=== PATIENT | female | born 1955 | race Caucasian/White ===

== ENCOUNTER 2020-09-14 13:28 | Inpatient (IN) | payer MEDICARE, MEDICAID, SELFPAY ==
[2020-09-14] VITALS (8 sets, daily range): BP systolic 117–135; BP diastolic 60–103; PULSE 96–107; RESP 13–20; TEMP 37.4–38.1; O2SAT 93–99; BMI 58.2
--- NOTE | ~2020-09-14 | CT_ITS ---
EXAMINATION: CTA chest PE protocol DATE: 09/14/2020 15:04 INDICATION: Dyspnea. TECHNIQUE: Computed tomography angiography (CTA) of the chest was performed with 100 mL Omnipaque-350 intravenous contrast timed to evaluate the pulmonary arteries. Coronal maximum intensity projection 3D-reconstructions were created by the technologist. Automated exposure control and iterative reconst ruction technique were employed. The dose-length product was 1138.36 mGy-cm. COMPARISON: Chest 2 views 09/14/2020 FINDINGS: There is a pneumatocele in right upper lobe. There are mild peripheral patchy groundglass o pacities in the upper and lower lobes with a peripheral and lower lung predominance. There is a small right posterior diaphragmatic hernia containing fat. No pleural effusion. There is a 4.2 cm nodule i n right thyroid lobe. The heart size is normal. No pericardial effusion. There is no pulmonary embolu s. The liver demonstrates surface nodularity, consistent with cirrhosis. There is a 2.3 cm mass in ri ght adrenal gland measuring soft tissue attenuation. There is mild thoracic spondylosis. IMPRESSION: 1. No pulmonary embolus. 2. Mild multifocal lung disease suspicious for atypical pneumonia such as COVID-19 pneumonia. Mild pu lmonary edema is less likely. 3. Cirrhosis of the liver. 4. 2.3 cm right adrenal mass. In the absence of known malignancy, this finding is likely an adenoma. 5. Right thyroid nodule. Thyroid ultrasound is recommended for risk stratification. Reviewed, dictated and finalized at location A. IMPRESSION: 1. No pulmonary embolus. 2. Mild multifocal lung disease suspicious for atypical pneumonia such as COVID -19 pneumonia. Mild pulmonary edema is less likely. 3. Cirrhosis of the liver. 4. 2.3 cm right adrenal mass. In the absence of known malignancy, this finding is likely an adenoma. 5. Right thyroid nodule. Thyroid ultrasound is recommended for risk stratificat ion.
--- NOTE | ~2020-09-14 | XR_ITS ---
EXAMINATION: XR chest 2V DATE: 09/14/2020 13:51 INDICATION: Shortness of breath TECHNIQUE: AP and lateral views of the chest are obtained. COMPARISON: 06/20/2008 FINDINGS: The lungs are free of acute opacities. There is no pleural effusion or pneumothorax. The ca rdiomediastinal silhouette is normal. There is mild thoracic spondylosis. IMPRESSION: 1. No acute cardiopulmonary abnormality. Reviewed, dictated and finalized at location A.
--- NOTE | 2020-09-14 13:35 | ECG_ITS ---
Measurements Intervals [place] Rate: 103 P: 63 SD: 122 QRS: -43 QRSD: 133 T: 15 QT: 356 QTc: 467 Interpretive Statements SINUS TACHYCARDIA LEFT AXIS DEVIATION RIGHT BUNDLE BRANCH BLOCK BASELINE ARTIFACT- I, III, AVR, AVL, AVF, V1-V6 ABNORMAL ECG Electronically Signed On 09-14-2020 13:54:22 CDT by Rashard Wan D.O.
--- NOTE | 2020-09-14 14:02 | ED.SOB ---
HPI - SOB/Dyspnea General Chief Complaint: Shortness of Breath/Dyspnea Stated Complaint: WEAKNESS Time Seen by Provider: 09/14/20 13:37 Source: RN notes reviewed History of Present Illness HPI Narrative: Patient presents emergency department from home via EMS for shortness of breath. Patient states she has not been feeling well for the past 3 days states she has had a cough this been nonproductive as well as nausea and hoarse voice she states that she gone to see Dr. Mckoy in the office today and one when she is like after a car she became severely short of breath. Patient denies any fevers or chills abdominal pain or any other symptoms states she has been feeling generally weak. Patient states she has not had a COVID-19 vaccines patient states her shortness of breath she does have a tightness in the midsternal chest Related Data Home Medications Medication Instructions Recorded Confirmed aspirin 81 mg tablet,delayed 81 mg PO DAILY 01/29/19 09/14/20 release Allergies Allergy/AdvReac Type Severity Reaction Status Date / Time exenatide Allergy Unknown Unknown Verified 09/14/20 13:33 saxagliptin Allergy Unknown Rash Verified 09/14/20 13:33 Review of Systems Review of Systems: Gen.: Denies fevers or chills Eyes: Denies eye pain or visual change ENT: Denies congestion Respiratory: See HPI CV: Reports chest pain palpitations GI: Denies abdominal pain , emesis or diarrhea reports nausea denies burning, urgency, frequency or hematuria Musculoskeletal: Denies back pain or muscle pain Neuro: Reports weakness Skin: Denies rash Except as documented, all other systems reviewed and negative [facility] Past Medical History Medical History Bilateral primary osteoarthritis of knee BMI 50.0-59.9, adult BMI 60.0-69.9, adult Chronic kidney disease, unspecified Chronic sinusitis, unspecified Depression Diabetes mellitus due to underlying condition, uncontrolled, without long-term current use of insulin Dyspnea Environmental allergies GERD (gastroesophageal reflux disease) Hyperlipidemia Hypertension Hypothyroidism, unspecified Leg weakness, bilateral Lower extremity edema Mixed hyperlipidemia Morbid (severe) obesity due to excess calories Nasal congestion ERAN on CPAP Tachycardia Type 2 diabetes mellitus without complications Surgical History Surgical History History of carpal tunnel release History of prior ablation treatment Family History Family History Mother Family history of alcoholism Grandparent Family history of malignant neoplasm of breast Family history of malignant neoplasm of breast in first degree relative Father Family history of coronary artery disease Sibling Diabetes mellitus Hypertension Social History Social History Smoking end date: 02/10/97 Alcohol intake: never Exam Narrative: APPEARANCE: No acute distress, nontoxic, resting in bed EYES: EOMI HEENT: Normocephalic, atraumatic, OMM, hoarse voice RESPIRATORY: No respiratory distress Clear to auscultation bilaterally with no rhonchi wheezing or rales. CARDIOVASCULAR: Regular rate and rhythm without murmurs rubs or gallops. ABDOMINAL: Obese soft, nontender, nondistended, no rebound or guarding MUSCULOSKELETAl: Moves all extremities. No clubbing, cyanosis or edema. NEURO: Awake and alert. Following commands, speech normal, no focal deficits SKIN:: Warm, dry. No rashes lesions or abrasions PSYCHIATRIC: Normal affect/mood, Course Course Emergency Course: Reviewed records including recent visit to Dr. Mckoy today patient was noted to be tachycardic in the 140s 150s with ambulating Discussed with CAMILO Quarles for Dr Burns presentation work-up agrees with admission at this time request patient star
[2020-09-14 14:12] LABS: Basophils Percent Auto 0.4 % (0.2-1.2); Eosinophils Absolute Auto 0.1 K/mm3 (0-0.3); Eosinophils Percent Auto 2.6 % (0-4.4); Hematocrit 37.7 % (37.0-47.0); Hemoglobin 11.2 g/dL (12.0-15.0); Immature Granulocyte Absolute 0.02 K/mm3 (0.00-0.031); Immature Granulocyte Percent A 0.4 % (0-0.5); Lymphocytes Absolute Auto 0.89 K/mm3 (0.9-3.2); Lymphocytes Percent Auto 19.1 % (18.3-44.2); Mean Corpuscular HGB Conc 29.7 g/dl (32-36); Mean Corpuscular Hemoglobin 21.1 pg (26-34); Mean Platelet Volume 10.5 fl (7.4-10.4); Monocytes Absolute Auto 0.4 K/mm3 (0.1-0.6); Monocytes Percent Auto 8.2 % (2.6-8.5); Neutrophils Absolute Auto 3.2 K/mm3 (1.3-6.7); Neutrophils Percent Auto 69.3 % (45.5-73.1); Platelet Count Result 233 k/mm3 (150-375); Red Blood Count 5.31 M/mm3 (4.2-5.4); Red Cell Distribution Width 19.3 % (11.5-14.5); White Blood Count 4.7 K/mm3 (4.5-10.0)
[2020-09-14 14:21] LABS: INR 0.9; Prothrombin Time 11.6 Seconds (11.1-14.7)
[2020-09-14 14:22] LABS: Alanine Aminotransferase 43 U/L (4-35); Albumin Level 4.2 g/dL (3.5-5.1); Alkaline Phosphatase 146 U/L (38-126); Anion Gap 13 mmol/L (8-16); Aspartate Amino Transferase 51 U/L (14-36); Bilirubin,Total 0.2 mg/dL (0.2-1.3); Blood Urea Nitrogen 14 mg/dL (7-17); Calcium 8.8 mg/dL (8.4-10.2); Carbon Dioxide 25 mmol/L (22-30); Chloride 96 mmol/L (98-107); Estimated CRCL calculation 63 ml/min; Estimated Glomerular Filt Rate 45; Glucose 200 mg/dL (65-110); Lipase 156 U/L (23-300); Potassium 3.5 mmol/L (3.4-5.0); Sodium 134 mmol/L (137-145)
[2020-09-14 14:24] LABS: D Dimer 2.23 ug/mL (<0.48)
[2020-09-14 14:27] LABS: Add Urine Microscopic? YES; Appearance Urine Clear (Clear); Bacteria Urine Trace /hpf; Bilirubin Urine Negative (Negative); Blood Urine Negative (Negative); Color Urine Yellow (Yellow); Glucose Urine UA 3+ mg/dL (Negative); Ketones Urine Negative (Negative); Leukocyte Esterase Ur Negative LEU/UL (Negative); Nitrate Urine Negative (Negative); Protein Urine Negative (Negative); RBC Urine 0-2 /hpf (0-2); Specific Grav Ur 1.025 (1.001-1.035); Squamous Epithelial Cell Urine Occasional /hpf (Few); Urobilinogen Urine Negative mg/dL (<2.0); WBC Urine 0-3 /hpf
[2020-09-14 14:33] LABS: Troponin I < 0.012 ng/mL (0.000-0.034)
[2020-09-14 14:33] LABS: Hypochromasia 1+ (NORMAL); Platelet Estimate Adequate (Adequate)
--- NOTE | 2020-09-14 16:09 | PC.NURSE ---
Patient's son called and patient gave verbal consent to give him medical information over the phone.
[2020-09-14 17:14] LABS: Lactic Acid Reflex 1.9 mmol/L (0.7-2.1)
--- NOTE | 2020-09-14 18:38 | ADMGEN ---
This patient, Jaida Aguilera, was admitted to [facility] Surg Room 327-01. Patient/family oriented to hospital policies and general routines including ID bracelet, bed and alarms, visiting hours, pain management, procedures, bathroom and other care routines, personal items, smoking policy, room service/diet, and visiting hours. Information on how to activate the Rapid Response Team has been discussed. Patient/Family are encouraged to report perceived risks to care and to ask questions if they do not understand what they are told or what they should do.
[2020-09-14 20:19] LABS: Troponin I < 0.012 ng/mL (0.000-0.034)
[2020-09-14] MEDS: ACETAMINOPHEN 325 MG TABLET 650 MG PO (20:24)
--- NOTE | 2020-09-14 22:00 | PM.IMHP ---
H&P: HPI History of Present Illness Date/Time: 09/14/20 22:00 Chief Complaint: SHORTNESS OF BREATH Narrative: THIS IS A 65-YEAR-OLD FEMALE WITH PAST MEDICAL HISTORY SIGNIFICANT FOR MORBID OBESITY, OBSTRUCTIVE SLEEP APNEA ON CPAP, DEGENERATIVE JOINT DISEASE, CONGESTIVE HEART FAILURE, TYPE 2 DIABETES MELLITUS, HYPERTENSION, HYPOTHYROIDISM. PATIENT PRESENTED TODAY TO THE EMERGENCY ROOM DUE TO GENERAL MALAISE BODY ACHES AND PAINS CHILLS FEVERS COUGH NONPRODUCTIVE SHORTNESS OF BREATH, POOR APPETITE. SHE DENIES ANY LOSS OF SENSE OF TASTE OR SMELL NO NAUSEA NO VOMITING NO DIARRHEA NO ABDOMINAL PAIN NO PND NO ORTHOPNEA. PRELIMINARY WORKUP WAS SIGNIFICANT FOR CTA NEGATIVE FOR PULMONARY EMBOLISM AND PATCHY PULMONARY INFILTRATES. Review of Systems Review of Systems: BODY ACHES AND PAINS GENERALIZED MALAISE POOR APPETITE FEVERS CHILLS COUGH NONPRODUCTIVE Constitutional: Constitutional: Reports chills, Reports fatigue, Reports fever(s), Reports lethargy, Reports malaise and Reports poor appetite Eyes: Eyes: Denies change in vision ENT: Denies dysphagia, Denies nasal congestion, Denies nasal discharge, Denies nasal obstruction and Denies odynophagia Cardiovascular: Cardiovascular: Denies chest pain, Denies irregular heart rhythm, Denies radiating jaw, neck or arm pain, Denies palpitations and Denies dyspnea on exertion Respiratory: Respiratory: Reports cough and Reports dyspnea Gastrointestinal: Gastrointestinal: Denies dyspepsia, Denies diarrhea, Denies nausea and Denies vomiting Genitourinary: Genitourinary: Reports no additional female genitourinary complaints Musculoskeletal: Musculoskeletal: Reports arthralgias ( BILATERAL KNEES) Integumentary/Breasts: Skin/Breast: Reports system reviewed and no additional complaints, except as docu Neurologic: Reports system reviewed and no additional complaints, except as documented Psychiatric: Psychiatric: Reports no additional psychiatric complaints Endocrine: Endocrine: Reports no additional endocrine complaints Hematologic/Lymphatic: Hematologic/Lymphatic: Reports no additional hematologic/lymphatic complaints Allergic/Immunologic: Allergic/Immunologic: Reports no additional allergic/immunologic complaints [facility] Past Medical History Medical History Bilateral primary osteoarthritis of knee BMI 50.0-59.9, adult BMI 60.0-69.9, adult Chronic kidney disease, unspecified Chronic sinusitis, unspecified Depression Diabetes mellitus due to underlying condition, uncontrolled, without long-term current use of insulin Dyspnea Environmental allergies GERD (gastroesophageal reflux disease) Hyperlipidemia Hypertension Hypothyroidism, unspecified Leg weakness, bilateral Lower extremity edema Mixed hyperlipidemia Morbid (severe) obesity due to excess calories Nasal congestion ERAN on CPAP Tachycardia Type 2 diabetes mellitus without complications Surgical History Surgical History History of carpal tunnel release History of prior ablation treatment Family History Family History Mother Family history of alcoholism Grandparent Family history of malignant neoplasm of breast Family history of malignant neoplasm of breast in first degree relative Father Family history of coronary artery disease Sibling Diabetes mellitus Hypertension Social History Social History Smoking status: Never smoker Second hand tobacco smoke exposure: No Smoking end date: 02/10/97 Alcohol intake: never Substance use: never Gender identity (if verbalized by the patient): Female Sexual Orientation (if Verbalized by the Patient): Straight or Heterosexual Spiritual care concerns: No Meds Home Medications and Allergies Home Medications Medication Instructi
[2020-09-14 22:38] LABS: Troponin I < 0.012 ng/mL (0.000-0.034)
[2020-09-15] VITALS (10 sets, daily range): BP systolic 118–151; BP diastolic 52–72; PULSE 78–95; RESP 18–22; TEMP 36.4–37.3; O2SAT 93–97
[2020-09-15] MEDS: ALBUTEROL SULFATE (*SP) AEROSOL 1 PUFF 2 PUFF INHALATION ×2 (04:23→04:24)
[2020-09-15] MEDS: PRIMIDONE 50 MG TABLET BY MOUTH ×2 (06:00→20:44)
[2020-09-15] MEDS: LEVOTHYROXINE SODIUM 50 MCG TABLET PO (06:00)
[2020-09-15 06:45] LABS: Basophils Percent Auto 0.3 % (0.2-1.2); Eosinophils Absolute Auto 0.1 K/mm3 (0-0.3); Eosinophils Percent Auto 2.6 % (0-4.4); Hematocrit 35.1 % (37.0-47.0); Hemoglobin 10.3 g/dL (12.0-15.0); Immature Granulocyte Absolute 0.02 K/mm3 (0.00-0.031); Immature Granulocyte Percent A 0.6 % (0-0.5); Lymphocytes Absolute Auto 1.14 K/mm3 (0.9-3.2); Lymphocytes Percent Auto 32.9 % (18.3-44.2); Mean Corpuscular HGB Conc 29.3 g/dl (32-36); Mean Corpuscular Hemoglobin 20.6 pg (26-34); Mean Corpuscular Volume 70.3 fl (80-100); Mean Platelet Volume 10.4 fl (7.4-10.4); Monocytes Absolute Auto 0.6 K/mm3 (0.1-0.6); Monocytes Percent Auto 15.9 % (2.6-8.5); Neutrophils Absolute Auto 1.7 K/mm3 (1.3-6.7); Neutrophils Percent Auto 47.7 % (45.5-73.1); Platelet Count Result 229 k/mm3 (150-375); Red Blood Count 4.99 M/mm3 (4.2-5.4); Red Cell Distribution Width 18.6 % (11.5-14.5); White Blood Count 3.5 K/mm3 (4.5-10.0)
[2020-09-15 07:06] LABS: Anion Gap 11 mmol/L (8-16); Blood Urea Nitrogen 20 mg/dL (7-17); Calcium 8.8 mg/dL (8.4-10.2); Carbon Dioxide 26 mmol/L (22-30); Chloride 101 mmol/L (98-107); Estimated CRCL calculation 75 ml/min; Estimated Glomerular Filt Rate 56; Glucose 148 mg/dL (65-110); Potassium 3.5 mmol/L (3.4-5.0); Sodium 138 mmol/L (137-145)
[2020-09-15 07:10] LABS: Platelet Estimate Adequate (Adequate)
[2020-09-15 07:11] LABS: Anisocytosis 1+ (NORMAL); Hypochromasia 1+ (NORMAL)
[2020-09-15 08:03] LABS: Glucose Point of Care 168 mg/dl (65-105)
[2020-09-15] MEDS: lisinopriL 20 MG TABLET PO (08:38)
[2020-09-15] MEDS: buPROPion HCL XL (24 HR) 150 MG TABCR PO (08:38)
[2020-09-15] MEDS: ATORVASTATIN 10 MG TABLET PO (08:39)
[2020-09-15] MEDS: PARoxetine 20 MG TABLET 40 MG PO (08:39)
[2020-09-15] MEDS: PANTOPRAZOLE 40 MG TABLET PO (08:39)
[2020-09-15] MEDS: hydroCHLOROthiazide 12.5 MG CAPSULE PO (08:39)
[2020-09-15] MEDS: ASPIRIN 81 MG ENTERIC TABLET PO (08:39)
[2020-09-15] MEDS: ENOXAPARIN 40 MG/0.4 ML SYRINGE SUB-Q ×2 (08:40→20:45)
[2020-09-15] MEDS: TOLNAFTATE 1% POWDER 45 GM BTL 1 APPLIC TOPICAL ×2 (08:40→20:45)
[2020-09-15] MEDS: HYDROcodone/acetaminophen (*CRX) 5-325 MG TABLET 1 TAB PO ×2 (08:44→18:12)
[2020-09-15] MEDS: ALBUTEROL SULFATE (*SP) INHALER 2 PUFF INHALATION ×3 (09:46→20:44)
[2020-09-15 12:15] LABS: Glucose Point of Care 260 mg/dl (65-105)
[2020-09-15] MEDS: INSULIN ASPART (*BKC) 100 UNITS/ML 8 UNITS SUB-Q (12:17)
--- NOTE | 2020-09-15 16:09 | PM.IMPN ---
Progress Note: A&P Assessment and Plan (1) Pneumonia: Code(s): J18.9 - Pneumonia, unspecified organism Status: Acute Assessment and Plan: STARTED ON ROCEPHIN AND ZITHROMAX AWAIT CULTURES 09/15 patient is suspected having COVID-19 patient is tested an isolated, patient had a CTA of the chest there was no pulmonary emboli however CT scan is suspicious COVID-19 pneumonia, there is also concern the patient may have community-acquired pneumonia being treated with Rocephin azithromycin, the CTA of the chest also right thyroid nodule will do ultrasound to further evaluate,the patient is on room air, denies any cough shortness of breath fever or chills, wants to go home, will continue to monitor further recommendation to follow. (2) Suspected 2019-nCoV infection: Code(s): Z20.822 - Contact with and (suspected) exposure to COVID-19 Status: Acute Assessment and Plan: AWAITING SEROLOGY CONTINUE ISOLATION (3) Diabetes mellitus due to underlying condition, uncontrolled, without long-term current use of insulin: Code(s): E08.65 - Diabetes mellitus due to underlying condition with hyperglycemia Status: Acute Assessment and Plan: ACCU-CHEKS AC AND HS CARB CONSISTENT CALORIE RESTRICTED DIET INSULIN SLIDING SCALE NEEDED (4) Class 3 severe obesity due to excess calories without serious comorbidity in adult: Code(s): E66.01 - Morbid (severe) obesity due to excess calories Status: Acute Assessment and Plan: LIFESTYLE AND DIET MODIFICATION (5) ERAN on CPAP: Code(s): G47.33 - Obstructive sleep apnea (adult) (pediatric); Z99.89 - Dependence on other enabling machines and devices Status: Acute Assessment and Plan: CONTINUE CPAP (6) Hypertension: Code(s): I10 - Essential (primary) hypertension Status: Acute Assessment and Plan: CONTINUE HOME MEDS (7) Bilateral primary osteoarthritis of knee: Code(s): M17.0 - Bilateral primary osteoarthritis of knee Status: Acute Assessment and Plan: TYLENOL NEEDED Subjective Date/time seen: 09/15/20 16:09 Chief Complaint: SHORTNESS OF BREATH Narrative: THIS IS A 65-YEAR-OLD FEMALE WITH PAST MEDICAL HISTORY SIGNIFICANT FOR MORBID OBESITY, OBSTRUCTIVE SLEEP APNEA ON CPAP, DEGENERATIVE JOINT DISEASE, CONGESTIVE HEART FAILURE, TYPE 2 DIABETES MELLITUS, HYPERTENSION, HYPOTHYROIDISM. PATIENT PRESENTED TODAY TO THE EMERGENCY ROOM DUE TO GENERAL MALAISE BODY ACHES AND PAINS CHILLS FEVERS COUGH NONPRODUCTIVE SHORTNESS OF BREATH, POOR APPETITE. SHE DENIES ANY LOSS OF SENSE OF TASTE OR SMELL NO NAUSEA NO VOMITING NO DIARRHEA NO ABDOMINAL PAIN NO PND NO ORTHOPNEA. PRELIMINARY WORKUP WAS SIGNIFICANT FOR CTA NEGATIVE FOR PULMONARY EMBOLISM AND PATCHY PULMONARY INFILTRATES. 09/15 patient is suspected having COVID-19 patient is tested an isolated, patient had a CTA of the chest there was no pulmonary emboli however CT scan is suspicious COVID-19 pneumonia, there is also concern the patient may have community-acquired pneumonia being treated with Rocephin azithromycin, the CTA of the chest also right thyroid nodule will do ultrasound to further evaluate,the patient is on room air, denies any cough shortness of breath fever or chills, wants to go home, will continue to monitor further recommendation to follow. Review of Systems Review of Systems: All systems reviewed & are unremarkable except as noted in HPI and below Exam Narrative: morbidly obese Patient is comfortable, NAD HEENT: eyes are clear and none icteric LUNGS: normal respiratory effort ABD: distended obese Lower extremities: no edema SKIN: nonjaundiced Neuro: grossly intact. Objective Data Vital Signs Vital Signs: Vital Signs - 24 hr 09/14/20 17:44 09/14/20 18:12 09/14/20 18:47 Temperature 100.6 F H Pulse Rate 105 H 100 101 H Respiratory Rate 16 13 20 Blood Pressure 135/60 124/72 133/61 Pulse Ox
[2020-09-15 17:09] LABS: Glucose Point of Care 127 mg/dl (65-105)
[2020-09-15] MEDS: ACETAMINOPHEN 325 MG TABLET 650 MG PO (20:45)
[2020-09-15 20:48] LABS: Glucose Point of Care 177 mg/dl (65-105)
[2020-09-16] VITALS (8 sets, daily range): BP systolic 126–150; BP diastolic 58–65; PULSE 78–106; RESP 16–22; TEMP 36.6–37.1; O2SAT 96–98
[2020-09-16 02:05] LABS: SARS-CoV-2 RNA PCR Positive
[2020-09-16] MEDS: ALBUTEROL SULFATE (*SP) INHALER 2 PUFF INHALATION ×4 (03:10→22:02)
[2020-09-16] MEDS: LEVOTHYROXINE SODIUM 50 MCG TABLET PO (06:09)
[2020-09-16 08:06] LABS: Glucose Point of Care 195 mg/dl (65-105)
[2020-09-16] MEDS: INSULIN ASPART (*BKC) 100 UNITS/ML 8 UNITS SUB-Q ×3 (08:22→18:21)
[2020-09-16] MEDS: PANTOPRAZOLE 40 MG TABLET PO (09:00)
[2020-09-16] MEDS: ENOXAPARIN 40 MG/0.4 ML SYRINGE SUB-Q ×2 (09:00→21:10)
[2020-09-16] MEDS: ASPIRIN 81 MG ENTERIC TABLET PO (09:00)
[2020-09-16] MEDS: buPROPion HCL XL (24 HR) 150 MG TABCR PO (09:00)
[2020-09-16] MEDS: lisinopriL 20 MG TABLET PO (09:00)
[2020-09-16] MEDS: ATORVASTATIN 10 MG TABLET PO (09:00)
[2020-09-16] MEDS: PRIMIDONE 50 MG TABLET BY MOUTH ×2 (09:00→21:10)
[2020-09-16] MEDS: hydroCHLOROthiazide 12.5 MG CAPSULE PO (09:00)
[2020-09-16] MEDS: PARoxetine 20 MG TABLET 40 MG PO (09:00)
[2020-09-16 09:01] LABS: Hematocrit 35.6 % (37.0-47.0); Hemoglobin 10.5 g/dL (12.0-15.0); Mean Corpuscular HGB Conc 29.5 g/dl (32-36); Mean Corpuscular Hemoglobin 20.9 pg (26-34); Mean Corpuscular Volume 70.8 fl (80-100); Mean Platelet Volume 10.7 fl (7.4-10.4); Platelet Count Result 218 k/mm3 (150-375); Red Blood Count 5.03 M/mm3 (4.2-5.4); Red Cell Distribution Width 18.6 % (11.5-14.5); White Blood Count 4.3 K/mm3 (4.5-10.0)
[2020-09-16] MEDS: TOLNAFTATE 1% POWDER 45 GM BTL 1 APPLIC TOPICAL ×2 (09:01→21:10)
[2020-09-16 09:05] LABS: Alanine Aminotransferase 39 U/L (4-35); Estimated CRCL calculation 75 ml/min; Estimated Glomerular Filt Rate 56
[2020-09-16 09:07] LABS: INR 0.9; Prothrombin Time 12.5 Seconds (11.1-14.7)
[2020-09-16 09:08] LABS: Alanine Aminotransferase 40 U/L (4-35); Albumin Level 4.1 g/dL (3.5-5.1); Alkaline Phosphatase 133 U/L (38-126); Anion Gap 10 mmol/L (8-16); Aspartate Amino Transferase 48 U/L (14-36); Bilirubin,Total 0.4 mg/dL (0.2-1.3); Blood Urea Nitrogen 17 mg/dL (7-17); CRP 1.4 mg/dL (<1.0); Calcium 8.7 mg/dL (8.4-10.2); Carbon Dioxide 26 mmol/L (22-30); Chloride 99 mmol/L (98-107); Estimated CRCL calculation 75 ml/min; Estimated Glomerular Filt Rate 56; Glucose 193 mg/dL (65-110); Lactate Dehydrogenase 409 U/L (313-618); Potassium 3.3 mmol/L (3.4-5.0); Sodium 135 mmol/L (137-145)
[2020-09-16 09:10] LABS: D Dimer 2.24 ug/mL (<0.48)
[2020-09-16 09:17] LABS: Troponin I < 0.012 ng/mL (0.000-0.034)
[2020-09-16] MEDS: REMDESIVIR 200 MG/NS 250 ML 200 MG/250 ML BAG 250 MG IVPB (11:42)
[2020-09-16 12:49] LABS: Glucose Point of Care 226 mg/dl (65-105)
[2020-09-16 17:28] LABS: Glucose Point of Care 219 mg/dl (65-105)
--- NOTE | 2020-09-16 17:33 | PM.IMPN ---
Progress Note: A&P Assessment and Plan (1) Pneumonia due to COVID-19 virus: Code(s): U07.1 - COVID-19; J12.82 - Pneumonia due to coronavirus disease 2019 Status: Acute Assessment and Plan: REMDESIVIR AND DEXAMETHASONE STARTED AM OF 09/16 ADD TOCILIZUMAB IF OXYGEN REQUIREMENTS AND CRP INCREASE Enoxaparin 40mg SQ bid Continue on droplet isolation (2) Diabetes mellitus due to underlying condition, uncontrolled, without long-term current use of insulin: Code(s): E08.65 - Diabetes mellitus due to underlying condition with hyperglycemia Status: Acute Assessment and Plan: SSI while on steroids (3) ERAN on CPAP: Code(s): G47.33 - Obstructive sleep apnea (adult) (pediatric); Z99.89 - Dependence on other enabling machines and devices Status: Acute Assessment and Plan: increases risk of COVID-19 cx (4) BMI 50.0-59.9, adult: Code(s): Z68.43 - Body mass index [BMI] 50.0-59.9, adult Status: Acute Assessment and Plan: increases risk of COVID-19 cx (5) Hypertension: Qualifiers: Hypertension type: unspecified Qualified Code(s): I10 - Essential (primary) hypertension Code(s): I10 - Essential (primary) hypertension Status: Acute Assessment and Plan: Stable at present but increases risk of COVID-19 cx Subjective Date/time seen: 09/16/20 17:33 Interval history: Admitted 09/14 with Pneumonia. COVID-19+. Remdesivir and Dexamethasone started 09/16 AM. 09/16 visit: Dry cough. Loss of taste. No cp or sob. No other GI sx's. Denied pain. Review of Systems Review of Systems: All systems reviewed & are unremarkable except as noted in HPI and below Exam Narrative: GEN: Morbidly obese, NAD. Patient is comfortable, NAD HEENT: eyes are clear and none icteric LUNGS: normal respiratory effort, SCATTERED WHEEZES AND RHONCHI ABD: protuberant obese nontender Lower extremities: no edema Neuro: CN symmetric to inspection Objective Data Vital Signs Vital Signs: Vital Signs - 24 hr 09/15/20 20:00 09/15/20 23:43 09/16/20 00:00 Temperature 99.0 F 99.1 F Pulse Rate 85 85 82 Respiratory Rate 20 22 H Blood Pressure 145/52 H 139/61 Pulse Oximetry 96 97 09/16/20 04:00 09/16/20 08:00 Temperature 98.5 F 98.5 F Pulse Rate 78 102 H Respiratory Rate 20 18 Blood Pressure 150/59 H 135/58 L Pulse Oximetry 98 96 Intake/Output Intake/Output: Intake & Output 09/13/20 09/14/20 09/15/20 09/16/20 23:59 23:59 23:59 23:59 Intake Total 300 2870 790 Output Total 100 1400 Balance 200 1470 790 Meds/Results Medications: Active Medications Generic Name Dose Route Start Last Admin Trade Name Freq PRN Reason Stop Dose Admin Acetaminophen 650 mg 09/14/20 19:12 09/15/20 20:45 Acetaminophen 325 Mg Tablet PO 650 mg Q6H PRN Administration Mild Pain (1-3) or Fever Hydrocodone Bitart/Acetaminophen 1 tab 09/14/20 21:52 09/15/20 18:12 Hydrocodone/Acetaminophen (*Crx) 5-325 Mg Tablet PO 1 tab Q8H PRN Administration Pain Rated 4-6 Albuterol 1 puff 09/15/20 09:27 Albuterol Sulfate (*Sp) Inhaler INHALATION Q6H PRN shortness of breath or wheezing Albuterol 2 puff 09/15/20 14:00 09/16/20 14:23 Albuterol Sulfate (*Sp) Inhaler INHALATION 2 puff Q6HRT CHERYL Administration Alprazolam 1 mg 09/14/20 21:52 Alprazolam (*Crx) 0.5 Mg Tablet PO TID PRN anxiety Aspirin 81 mg 09/15/20 09:00 09/16/20 09:00 Aspirin 81 Mg Enteric Tablet PO 81 mg DAILY CHERYL Administration Atorvastatin Calcium 10 mg 09/15/20 09:00 09/16/20 09:00 Atorvastatin 10 Mg Tablet PO 10 mg DAILY CHERYL Administration Bupropion HCl 150 mg 09/15/20 09:00 09/16/20 09:00 Bupropion Hcl Xl (24 Hr) 150 Mg Tabcr PO 150 mg QAM CHERYL Administration Dexamethasone Sodium Phosphate 6 mg 09/16/20 09:00 09/16/20 09:01 Dexamethasone Sod Phos Inj 10 Mg/Ml 1 Ml Vial IV PUSH 09/25/20 09:01 6
[2020-09-17] VITALS (11 sets, daily range): BP systolic 107–161; BP diastolic 44–74; PULSE 66–99; RESP 16–20; TEMP 36.4–37.1; O2SAT 94–98
[2020-09-17] MEDS: FLUTICASONE PROPIONATE 0.05% NA SPR 16 GM BTL (*BKC) 1 SPRAY NASAL (00:46)
[2020-09-17 02:21] LABS: Glucose Point of Care 197 mg/dl (65-105)
[2020-09-17] MEDS: ALBUTEROL SULFATE (*SP) INHALER 2 PUFF INHALATION ×4 (02:30→21:09)
[2020-09-17] MEDS: ACETAMINOPHEN 325 MG TABLET 650 MG PO (03:08)
[2020-09-17] MEDS: LEVOTHYROXINE SODIUM 50 MCG TABLET PO (06:19)
[2020-09-17 08:00] LABS: Hematocrit 32.8 % (37.0-47.0); Hemoglobin 9.7 g/dL (12.0-15.0); Mean Corpuscular HGB Conc 29.6 g/dl (32-36); Mean Corpuscular Volume 71.1 fl (80-100); Mean Platelet Volume 10.5 fl (7.4-10.4); Platelet Count Result 183 k/mm3 (150-375); Red Blood Count 4.61 M/mm3 (4.2-5.4); Red Cell Distribution Width 18.6 % (11.5-14.5); White Blood Count 3.6 K/mm3 (4.5-10.0)
[2020-09-17 08:11] LABS: Prothrombin Time 13.4 Seconds (11.1-14.7)
[2020-09-17 08:13] LABS: Alanine Aminotransferase 37 U/L (4-35); Albumin Level 3.8 g/dL (3.5-5.1); Alkaline Phosphatase 115 U/L (38-126); Anion Gap 10 mmol/L (8-16); Aspartate Amino Transferase 42 U/L (14-36); Bilirubin,Total 0.3 mg/dL (0.2-1.3); Blood Urea Nitrogen 17 mg/dL (7-17); CRP 2.1 mg/dL (<1.0); Calcium 8.5 mg/dL (8.4-10.2); Carbon Dioxide 25 mmol/L (22-30); Chloride 100 mmol/L (98-107); Estimated CRCL calculation 75 ml/min; Estimated Glomerular Filt Rate 56; Glucose 142 mg/dL (65-110); Lactate Dehydrogenase 438 U/L (313-618); Potassium 2.9 mmol/L (3.4-5.0); Sodium 135 mmol/L (137-145)
[2020-09-17 08:14] LABS: D Dimer 2.09 ug/mL (<0.48)
[2020-09-17] MEDS: INSULIN ASPART (*BKC) 100 UNITS/ML 8 UNITS SUB-Q ×3 (08:24→17:46)
[2020-09-17] MEDS: ASPIRIN 81 MG ENTERIC TABLET PO (08:25)
[2020-09-17] MEDS: ENOXAPARIN 40 MG/0.4 ML SYRINGE SUB-Q ×2 (08:25→21:04)
[2020-09-17] MEDS: PARoxetine 20 MG TABLET 40 MG PO (08:26)
[2020-09-17] MEDS: buPROPion HCL XL (24 HR) 150 MG TABCR PO (08:26)
[2020-09-17] MEDS: hydroCHLOROthiazide 12.5 MG CAPSULE PO (08:26)
[2020-09-17] MEDS: lisinopriL 20 MG TABLET PO (08:26)
[2020-09-17] MEDS: PRIMIDONE 50 MG TABLET BY MOUTH ×2 (08:27→21:03)
[2020-09-17] MEDS: ATORVASTATIN 10 MG TABLET PO (08:27)
[2020-09-17] MEDS: PANTOPRAZOLE 40 MG TABLET PO (08:27)
[2020-09-17] MEDS: TOLNAFTATE 1% POWDER 45 GM BTL 1 APPLIC TOPICAL ×2 (08:28→21:00)
[2020-09-17 09:05] LABS: Glucose Point of Care 158 mg/dl (65-105)
[2020-09-17] MEDS: INSULIN ASPART (*BKC) 100 UNITS/ML SUB-Q ×2 (11:57→17:46)
[2020-09-17] MEDS: REMDESIVIR 100 MG/NS 250 ML 100 MG/250 ML BAG 250 MG IVPB (11:58)
[2020-09-17 12:29] LABS: Glucose Point of Care 265 mg/dl (65-105)
[2020-09-17 17:33] LABS: Glucose Point of Care 232 mg/dl (65-105)
--- NOTE | 2020-09-17 17:34 | PM.IMPN ---
Progress Note: A&P Assessment and Plan (1) Pneumonia due to COVID-19 virus: Code(s): U07.1 - COVID-19; J12.82 - Pneumonia due to coronavirus disease 2019 Status: Acute Assessment and Plan: REMDESIVIR AND DEXAMETHASONE STARTED AM OF 09/16: DAY 2 Remains stable on room air ADD TOCILIZUMAB IF OXYGEN REQUIREMENTS AND CRP INCREASE Enoxaparin 40mg SQ bid Continue on droplet isolation (2) Diabetes mellitus due to underlying condition, uncontrolled, without long-term current use of insulin: Code(s): E08.65 - Diabetes mellitus due to underlying condition with hyperglycemia Status: Acute Assessment and Plan: SSI while on steroids (3) ERAN on CPAP: Code(s): G47.33 - Obstructive sleep apnea (adult) (pediatric); Z99.89 - Dependence on other enabling machines and devices Status: Acute Assessment and Plan: increases risk of COVID-19 cx (4) BMI 50.0-59.9, adult: Code(s): Z68.43 - Body mass index [BMI] 50.0-59.9, adult Status: Acute Assessment and Plan: increases risk of COVID-19 cx (5) Hypertension: Qualifiers: Hypertension type: unspecified Qualified Code(s): I10 - Essential (primary) hypertension Code(s): I10 - Essential (primary) hypertension Status: Acute Assessment and Plan: Stable at present but increases risk of COVID-19 cx Subjective Date/time seen: 09/17/20 17:34 Interval history: Admitted 09/14 with Pneumonia. COVID-19+. Remdesivir and Dexamethasone started 09/16 AM. 09/17 visit: Dry cough. Food tastes bland. No cp. No sob at rest. MOORE present. No other GI sx's. No bleeding. Denied pain. Review of Systems Review of Systems: All systems reviewed & are unremarkable except as noted in HPI and below Exam Narrative: GEN: Morbidly obese, NAD. Patient is comfortable, NAD HEENT: eyes are clear and none icteric LUNGS: normal respiratory effort, SLIGHTLY COARSE BS ABD: protuberant obese nontender Lower extremities: no edema Neuro: CN symmetric to inspection Objective Data Vital Signs Vital Signs: Vital Signs - 24 hr 09/16/20 20:00 09/16/20 22:03 09/17/20 00:00 Temperature 98.8 F 98.8 F Pulse Rate 106 H 87 84 Respiratory Rate 16 16 20 Blood Pressure 142/65 H 161/61 H Pulse Oximetry 96 95 09/17/20 02:30 09/17/20 04:00 09/17/20 06:00 Temperature 97.5 F L 98.6 F Pulse Rate 76 89 79 Respiratory Rate 16 20 18 Blood Pressure 139/56 L 149/69 H Pulse Oximetry 96 94 09/17/20 08:00 09/17/20 12:00 09/17/20 12:38 Temperature 98.2 F Pulse Rate 75 91 91 Respiratory Rate 18 16 Blood Pressure 107/57 L Pulse Oximetry 94 95 09/17/20 16:00 Temperature Pulse Rate 90 Respiratory Rate Blood Pressure Pulse Oximetry Intake/Output Intake/Output: Intake & Output 09/14/20 09/15/20 09/16/20 09/17/20 23:59 23:59 23:59 23:59 Intake Total 300 2870 2170 896 Output Total 100 1400 300 700 Balance 200 1470 1870 196 Meds/Results Medications: Active Medications Generic Name Dose Route Start Last Admin Trade Name Freq PRN Reason Stop Dose Admin Acetaminophen 650 mg 09/14/20 19:12 09/17/20 03:08 Acetaminophen 325 Mg Tablet PO 650 mg Q6H PRN Administration Mild Pain (1-3) or Fever Hydrocodone Bitart/Acetaminophen 1 tab 09/14/20 21:52 09/15/20 18:12 Hydrocodone/Acetaminophen (*Crx) 5-325 Mg Tablet PO 1 tab Q8H PRN Administration Pain Rated 4-6 Albuterol 1 puff 09/15/20 09:27 Albuterol Sulfate (*Sp) Inhaler INHALATION Q6H PRN shortness of breath or wheezing Albuterol 2 puff 09/15/20 14:00 09/17/20 14:36 Albuterol Sulfate (*Sp) Inhaler INHALATION 2 puff Q6HRT CHERYL Administration Alprazolam 1 mg 09/14/20 21:52 Alprazolam (*Crx) 0.5 Mg Tablet PO TID PRN anxiety Aspirin 81 mg 09/15/20 09:00 09/17/20 08:25 Aspirin 81 Mg Enteric Tablet PO 81 mg DAILY CHERYL Administration Atorvastatin Calcium 10 mg
[2020-09-17 21:46] LABS: Glucose Point of Care 149 mg/dl (65-105)
[2020-09-18] VITALS (8 sets, daily range): BP systolic 129–146; BP diastolic 52–72; PULSE 68–87; RESP 16–20; TEMP 36.4–37.1; O2SAT 94–99
[2020-09-18] MEDS: ACETAMINOPHEN 325 MG TABLET 650 MG PO ×2 (00:04→08:34)
[2020-09-18] MEDS: ALBUTEROL SULFATE (*SP) INHALER 2 PUFF INHALATION ×4 (03:18→23:52)
[2020-09-18] MEDS: LEVOTHYROXINE SODIUM 50 MCG TABLET PO (06:31)
[2020-09-18] MEDS: INSULIN ASPART (*BKC) 100 UNITS/ML 8 UNITS SUB-Q ×3 (08:30→17:11)
[2020-09-18] MEDS: lisinopriL 20 MG TABLET PO (08:33)
[2020-09-18] MEDS: PANTOPRAZOLE 40 MG TABLET PO (08:33)
[2020-09-18] MEDS: buPROPion HCL XL (24 HR) 150 MG TABCR PO (08:33)
[2020-09-18] MEDS: hydroCHLOROthiazide 12.5 MG CAPSULE PO (08:33)
[2020-09-18] MEDS: PRIMIDONE 50 MG TABLET BY MOUTH ×2 (08:34→21:43)
[2020-09-18] MEDS: ENOXAPARIN 40 MG/0.4 ML SYRINGE SUB-Q ×2 (08:34→21:42)
[2020-09-18] MEDS: ATORVASTATIN 10 MG TABLET PO (08:34)
[2020-09-18] MEDS: ASPIRIN 81 MG ENTERIC TABLET PO (08:34)
[2020-09-18] MEDS: TOLNAFTATE 1% POWDER 45 GM BTL 1 APPLIC TOPICAL ×2 (08:35→21:54)
[2020-09-18] MEDS: PARoxetine 20 MG TABLET 40 MG PO (08:35)
[2020-09-18 09:32] LABS: Hematocrit 33.3 % (37.0-47.0); Hemoglobin 9.8 g/dL (12.0-15.0); Mean Corpuscular HGB Conc 29.4 g/dl (32-36); Mean Corpuscular Hemoglobin 20.6 pg (26-34); Mean Corpuscular Volume 70.1 fl (80-100); Mean Platelet Volume 10.7 fl (7.4-10.4); Platelet Count Result 199 k/mm3 (150-375); Red Blood Count 4.75 M/mm3 (4.2-5.4); Red Cell Distribution Width 18.5 % (11.5-14.5); White Blood Count 4.2 K/mm3 (4.5-10.0)
[2020-09-18 09:52] LABS: D Dimer 2.16 ug/mL (<0.48)
[2020-09-18 10:37] LABS: Alanine Aminotransferase 34 U/L (4-35); Albumin Level 3.7 g/dL (3.5-5.1); Alkaline Phosphatase 122 U/L (38-126); Anion Gap 10 mmol/L (8-16); Aspartate Amino Transferase 42 U/L (14-36); Bilirubin,Total 0.3 mg/dL (0.2-1.3); Blood Urea Nitrogen 17 mg/dL (7-17); CRP 2.7 mg/dL (<1.0); Calcium 8.8 mg/dL (8.4-10.2); Carbon Dioxide 25 mmol/L (22-30); Chloride 102 mmol/L (98-107); Estimated CRCL calculation 92 ml/min; Estimated Glomerular Filt Rate > 60; Glucose 145 mg/dL (65-110); Lactate Dehydrogenase 491 U/L (313-618); Potassium 3.5 mmol/L (3.4-5.0); Sodium 137 mmol/L (137-145)
[2020-09-18] MEDS: INSULIN ASPART (*BKC) 100 UNITS/ML SUB-Q ×2 (11:42→17:11)
[2020-09-18] MEDS: REMDESIVIR 100 MG/NS 250 ML 100 MG/250 ML BAG 250 MG IVPB (11:45)
[2020-09-18 11:49] LABS: Glucose Point of Care 264 mg/dl (65-105)
--- NOTE | 2020-09-18 16:06 | PM.IMPN ---
Progress Note: A&P Assessment and Plan (1) Pneumonia due to COVID-19 virus: Code(s): U07.1 - COVID-19; J12.82 - Pneumonia due to coronavirus disease 2019 Status: Acute Assessment and Plan: 09/18/20 16:06 REMDESIVIR AND DEXAMETHASONE STARTED AM OF 09/16: DAY 3 Requiring 2 L of oxygen, denies any fever, is feeling much better compared to when she arrived, states no BM for several days, will add Colace and MiraLax, will continue Linzess. if remains clinically stable no fever not requiring more than 6 L of oxygen patient can be discharged home tomorrow ADD TOCILIZUMAB IF OXYGEN REQUIREMENTS AND CRP INCREASE Enoxaparin 40mg SQ bid Continue on droplet isolation (2) Diabetes mellitus due to underlying condition, uncontrolled, without long-term current use of insulin: Code(s): E08.65 - Diabetes mellitus due to underlying condition with hyperglycemia Status: Acute Assessment and Plan: SSI while on steroids (3) ERAN on CPAP: Code(s): G47.33 - Obstructive sleep apnea (adult) (pediatric); Z99.89 - Dependence on other enabling machines and devices Status: Acute Assessment and Plan: increases risk of COVID-19 cx (4) BMI 50.0-59.9, adult: Code(s): Z68.43 - Body mass index [BMI] 50.0-59.9, adult Status: Acute Assessment and Plan: increases risk of COVID-19 cx (5) Hypertension: Qualifiers: Hypertension type: unspecified Qualified Code(s): I10 - Essential (primary) hypertension Code(s): I10 - Essential (primary) hypertension Status: Acute Assessment and Plan: Stable at present but increases risk of COVID-19 cx Subjective Date/time seen: 09/18/20 16:06 REMDESIVIR AND DEXAMETHASONE STARTED AM OF 09/16: DAY 3 Requiring 2 L of oxygen, denies any fever, is feeling much better compared to when she arrived, states no BM for several days, will add Colace and MiraLax, will continue Linzess. if remains clinically stable no fever not requiring more than 6 L of oxygen patient can be discharged home tomorrow ADD TOCILIZUMAB IF OXYGEN REQUIREMENTS AND CRP INCREASE Enoxaparin 40mg SQ bid Continue on droplet isolation Review of Systems Review of Systems: All systems reviewed & are unremarkable except as noted in HPI and below Exam Narrative: morbidly obese Patient is comfortable, NAD HEENT: eyes are clear and none icteric LUNGS: normal respiratory effort ABD: obese distended Lower extremities: no edema SKIN: nonjaundiced Neuro: grossly intact normal speech. Objective Data Vital Signs Vital Signs: Vital Signs - 24 hr 09/17/20 20:00 09/17/20 21:09 09/18/20 00:00 Temperature 98.2 F 98.7 F Pulse Rate 66 66 85 Respiratory Rate 16 16 20 Blood Pressure 135/44 L 140/60 Pulse Oximetry 98 98 09/18/20 00:07 09/18/20 03:18 09/18/20 04:00 Temperature 98.1 F Pulse Rate 68 82 Respiratory Rate 20 Blood Pressure 138/64 Pulse Oximetry 98 95 09/18/20 08:00 09/18/20 12:30 Temperature 97.7 F 97.8 F Pulse Rate 82 87 Respiratory Rate 16 18 Blood Pressure 145/52 H 129/59 L Pulse Oximetry 94 94 Intake/Output Intake/Output: Intake & Output 09/15/20 09/16/20 09/17/20 09/18/20 23:59 23:59 23:59 23:59 Intake Total 2870 2220 2486 1310 Output Total 6810 604 8836 700 Balance 1470 1920 436 610 Meds/Results Medications: Active Medications Generic Name Dose Route Start Last Admin Trade Name Freq PRN Reason Stop Dose Admin Acetaminophen 650 mg 09/14/20 19:12 09/18/20 08:34 Acetaminophen 325 Mg Tablet PO 650 mg Q6H PRN Administration Mild Pain (1-3) or Fever Hydrocodone Bitart/Acetaminophen 1 tab 09/14/20 21:52 09/15/20 18:12 Hydrocodone/Acetaminophen (*Crx) 5-325 Mg Tablet PO 1 tab Q8H PRN Administration Pain Rated 4-6 Albuterol 1 puff 09/15/20 09:27 Albuterol Sulfate (*Sp) Inhaler INHALATION Q6H PRN shortness of breath or wheezing Albuterol 2 puff
[2020-09-18 16:35] LABS: Glucose Point of Care 144 mg/dl (65-105)
[2020-09-18 17:19] LABS: Glucose Point of Care 207 mg/dl (65-105)
[2020-09-18] MEDS: DOCUSATE SODIUM 100 MG CAPSULE PO (21:42)
[2020-09-18 21:58] LABS: Glucose Point of Care 187 mg/dl (65-105)
--- NOTE | 2020-09-18 23:53 | PCRCNOTE ---
Window of time for administration has passed. See next scheduled administration.
[2020-09-19] VITALS: BP 152/74; PULSE 83; RESP 18; TEMP 36.7; O2SAT 97
[2020-09-19] MEDS: ACETAMINOPHEN 325 MG TABLET 650 MG PO (00:36)
[2020-09-19] MEDS: ALBUTEROL SULFATE (*SP) INHALER 2 PUFF INHALATION (03:10)
[2020-09-19 04:00] VITALS: BP 139/61; PULSE 80; RESP 18; TEMP 36.3; O2SAT 96
[2020-09-19] MEDS: LEVOTHYROXINE SODIUM 50 MCG TABLET PO (06:20)
[2020-09-19 08:00] VITALS: BP 162/81; PULSE 83; RESP 18; TEMP 36.5; O2SAT 92; O2SAT 93
[2020-09-19 08:11] LABS: Glucose Point of Care 133 mg/dl (65-105)
[2020-09-19 08:13] LABS: Hemoglobin 9.6 g/dL (12.0-15.0); Mean Corpuscular HGB Conc 29.1 g/dl (32-36); Mean Corpuscular Hemoglobin 20.8 pg (26-34); Mean Corpuscular Volume 71.4 fl (80-100); Mean Platelet Volume 10.1 fl (7.4-10.4); Platelet Count Result 169 k/mm3 (150-375); Red Blood Count 4.62 M/mm3 (4.2-5.4); Red Cell Distribution Width 18.8 % (11.5-14.5); White Blood Count 3.6 K/mm3 (4.5-10.0)
[2020-09-19 08:27] LABS: D Dimer 2.06 ug/mL (<0.48)
[2020-09-19 08:52] LABS: Albumin Level 3.4 g/dL (3.5-5.1)
[2020-09-19] MEDS: HYDROcodone/acetaminophen (*CRX) 5-325 MG TABLET 1 TAB PO (08:52)
[2020-09-19] MEDS: ASPIRIN 81 MG ENTERIC TABLET PO (08:53)
[2020-09-19] MEDS: hydroCHLOROthiazide 12.5 MG CAPSULE PO (08:53)
[2020-09-19] MEDS: ATORVASTATIN 10 MG TABLET PO (08:54)
[2020-09-19] MEDS: PRIMIDONE 50 MG TABLET BY MOUTH (08:54)
[2020-09-19] MEDS: ENOXAPARIN 40 MG/0.4 ML SYRINGE SUB-Q (08:54)
[2020-09-19] MEDS: buPROPion HCL XL (24 HR) 150 MG TABCR PO (08:54)
[2020-09-19] MEDS: PARoxetine 20 MG TABLET 40 MG PO (08:54)
[2020-09-19] MEDS: PANTOPRAZOLE 40 MG TABLET PO (08:54)
[2020-09-19] MEDS: DOCUSATE SODIUM 100 MG CAPSULE PO (08:54)
[2020-09-19] MEDS: lisinopriL 20 MG TABLET PO (08:54)
[2020-09-19] MEDS: INSULIN ASPART (*BKC) 100 UNITS/ML 8 UNITS SUB-Q ×2 (08:55→13:38)
[2020-09-19 08:59] LABS: Alanine Aminotransferase 32 U/L (4-35); Alkaline Phosphatase 111 U/L (38-126); Anion Gap 8 mmol/L (8-16); Aspartate Amino Transferase 41 U/L (14-36); Bilirubin,Total 0.3 mg/dL (0.2-1.3); Blood Urea Nitrogen 14 mg/dL (7-17); CRP 3.1 mg/dL (<1.0); Calcium 8.6 mg/dL (8.4-10.2); Carbon Dioxide 27 mmol/L (22-30); Chloride 102 mmol/L (98-107); Estimated CRCL calculation 92 ml/min; Estimated Glomerular Filt Rate > 60; Glucose 135 mg/dL (65-110); Lactate Dehydrogenase 505 U/L (313-618); Potassium 3.2 mmol/L (3.4-5.0); Sodium 137 mmol/L (137-145)
[2020-09-19] MEDS: TOLNAFTATE 1% POWDER 45 GM BTL 1 APPLIC TOPICAL (09:19)
[2020-09-19] MEDS: REMDESIVIR 100 MG/NS 250 ML 100 MG/250 ML BAG 250 MG IVPB (10:16)
[2020-09-19 12:00] VITALS: BP 157/62; PULSE 69; RESP 18; TEMP 36.6; O2SAT 94
[2020-09-19 12:18] LABS: Glucose Point of Care 186 mg/dl (65-105)
--- NOTE | 2020-09-19 13:05 | PM.IMPN ---
Progress Note: A&P Assessment and Plan (1) Pneumonia due to COVID-19 virus: Code(s): U07.1 - COVID-19; J12.82 - Pneumonia due to coronavirus disease 2019 Status: Acute Assessment and Plan: 09/18/20 16:06 REMDESIVIR AND DEXAMETHASONE STARTED AM OF 09/16: Day 4 Requiring 2 L of oxygen, denies any fever, is feeling much better compared to when she arrived, states no BM for several days, will add Colace and MiraLax, will continue Linzess. if remains clinically stable no fever not requiring more than 6 L of oxygen patient can be discharged home tomorrow ADD TOCILIZUMAB IF OXYGEN REQUIREMENTS AND CRP INCREASE Enoxaparin 40mg SQ bid Continue on droplet isolation (2) Diabetes mellitus due to underlying condition, uncontrolled, without long-term current use of insulin: Code(s): E08.65 - Diabetes mellitus due to underlying condition with hyperglycemia Status: Acute Assessment and Plan: SSI while on steroids (3) ERAN on CPAP: Code(s): G47.33 - Obstructive sleep apnea (adult) (pediatric); Z99.89 - Dependence on other enabling machines and devices Status: Acute Assessment and Plan: increases risk of COVID-19 cx (4) BMI 50.0-59.9, adult: Code(s): Z68.43 - Body mass index [BMI] 50.0-59.9, adult Status: Acute Assessment and Plan: increases risk of COVID-19 cx (5) Hypertension: Qualifiers: Hypertension type: unspecified Qualified Code(s): I10 - Essential (primary) hypertension Code(s): I10 - Essential (primary) hypertension Status: Acute Assessment and Plan: Stable at present but increases risk of COVID-19 cx Subjective Date/time seen: 09/19/20 13:05 Interval history: Admitted 09/14 with Pneumonia. COVID-19+. Remdesivir and Dexamethasone started 09/16 AM. 09/17 visit: Dry cough. Food tastes bland. No cp. No sob at rest. MOORE present. No other GI sx's. No bleeding. Denied pain. Review of Systems Review of Systems: All systems reviewed & are unremarkable except as noted in HPI and below Exam Narrative: morbidly obese Patient is comfortable, NAD HEENT: eyes are clear and none icteric LUNGS: normal respiratory effort ABD: obese distended Lower extremities: no edema SKIN: nonjaundiced Neuro: grossly intact normal speech. Objective Data Vital Signs Vital Signs: Vital Signs - 24 hr 09/18/20 17:00 09/18/20 20:00 09/19/20 00:00 Temperature 97.5 F L 97.5 F L 98.1 F Pulse Rate 80 79 83 Respiratory Rate 20 18 18 Blood Pressure 141/72 H 146/64 H 152/74 H Pulse Oximetry 99 95 97 09/19/20 04:00 09/19/20 08:00 09/19/20 12:00 Temperature 97.4 F L 97.7 F 97.8 F Pulse Rate 80 83 69 Respiratory Rate 18 18 18 Blood Pressure 139/61 162/81 H 157/62 H Pulse Oximetry 96 93 94 Intake/Output Intake/Output: Intake & Output 09/16/20 09/17/20 09/18/20 09/19/20 23:59 23:59 23:59 23:59 Intake Total 2220 2486 2550 690 Output Total 300 2050 2000 1250 Balance 1920 436 550 -560 Meds/Results Medications: Active Medications Generic Name Dose Route Start Last Admin Trade Name Freq PRN Reason Stop Dose Admin Acetaminophen 650 mg 09/14/20 19:12 09/19/20 00:36 Acetaminophen 325 Mg Tablet PO 650 mg Q6H PRN Administration Mild Pain (1-3) or Fever Hydrocodone Bitart/Acetaminophen 1 tab 09/14/20 21:52 09/19/20 08:52 Hydrocodone/Acetaminophen (*Crx) 5-325 Mg Tablet PO 1 tab Q8H PRN Administration Pain Rated 4-6 Albuterol 1 puff 09/15/20 09:27 Albuterol Sulfate (*Sp) Inhaler INHALATION Q6H PRN shortness of breath or wheezing Albuterol 2 puff 09/15/20 14:00 09/19/20 09:30 Albuterol Sulfate (*Sp) Inhaler INHALATION Not Given Q6HRT CHERYL Alprazolam 1 mg 09/14/20 21:52 Alprazolam (*Crx) 0.5 Mg Tablet PO TID PRN anxiety Aspirin 81 mg 09/15/20 09:00 09/19/20 08:53 Aspirin 81 Mg Enteric Tablet PO 81 mg DAILY CHERYL Administration Atorvastatin C
--- NOTE | 2020-09-19 13:34 | PM.DS ---
DS: Admitting Diagnosis Admitting Diagnosis Shortness of breath DS: Discharge Diagnosis Discharge Diagnosis (1) Pneumonia due to COVID-19 virus: Code(s): U07.1 - COVID-19; J12.82 - Pneumonia due to coronavirus disease 2019 Status: Acute DS: Summary Hospital Course Hospital Course: This is a 65-year-old female with past medical history significant for morbid obesity, obstructive sleep apnea on CPAP, degenerative joint disease, congestive heart failure, type 2 diabetes mellitus, hypertension, hypothyroidism presents to the ER on 09/14/2020 due to generalized malaise body aches and pains chills fever and cough which is nonproductive along with shortness of breath. She denied any loss of sense of taste or smell no nausea vomiting or diarrhea or abdominal pain. Workup in the ER was positive for patchy pulmonary infiltrates. CTA was negative for pulmonary embolism she was suspected to have COVID 19 infection and was admitted for further evaluation. She was mildly hypoxic on admission and was placed on 2 L oxygen. She was empirically started on Rocephin and azithromycin on admission. Her test for COVID came back positive. She was started on Decadron and remdesivir. She improved significantly and was off oxygen by the time of discharge. Her CTA also revealed new findings of cirrhosis of liver, 2.3 cm right adrenal mass likely adenoma and right-sided thyroid nodule. She needs to follow up with her primary care for further evaluation of these nodules at right adrenal mass and right thyroid nodule with subsequent thyroid ultrasound. She received 4 days course of remdesivir however with clinical improvement it was decided to discontinue and only continue Decadron for total 10 days. Status at Discharge Overall status at discharge: patient is progressing back to baseline Time Spent with Patient Time attestation: Total time spent providing and/or coordinating discharge services: 45 minutes Exam Const: General: comfortable, no acute distress, alert, awake and ill appearing chronically Nutritional Appearance: obese morbidly obese Orientation/consciousness: patient oriented x3 HENMT: Head: normal to inspection, normocephalic and atraumatic Ears: hearing grossly normal bilaterally General nose exam: Normal external nose present Face and sinus: normal facial exam Mouth: Yes Normal oral and palatal mucosa present Eyes: General: appearance normal, both eyes and all related structures Alignment and Position: alignment normal Sclera: sclerae normal Pupils: Equal, round and reactive pupils present EOM: EOMs intact bilaterally Neck: Neck: full ROM, no lymphadenopathy, supple and no JVD Thyroid: thyroid normal Lymphatic: no lymphadenopathy noted Resp: Effort & Inspection: normal respiratory effort and able to speak in complete sentences Auscultation: clear to auscultation bilaterally, no crackles, no rales, no rhonchi, no wheezes and diminished lung sounds Cardio: Jugular venous distension: no JVD Rate: regular rate Rhythm: regular rhythm Heart sounds: S1 normal heart sound present and S2 normal heart sound present GI: Inspection: Pannus present : General: Yes deferred Skin: Rashes: no rashes Wounds: no wounds Neuro: General: patient oriented x3 and CN's II-XI intact bilaterally Cranial nerves: Yes CN's II-XII intact bilaterally and Yes Equal, round and reactive pupils present Cognition (Neuro): normal cognition Speech: normal speech Motor exam (neuro): 5/5 motor strength present throughout Extrem: General: normal to inspection, full ROM, no joint enlargement and no pedal edema DS: Data Data Completed and Pending Labs on day of discharge: Labs from last 24 hours 09/19/20 09/19/20 09/19/20 11:55 08:07 08:06 WBC RBC Hgb Hct MCV MCH MCHC RDW Plt Count MPV PT INR D-Dimer Sodium 137 Potassium 3.2 L Chloride 102 Carbon Dioxide 27 Anion Gap 8 BUN 14 C
[2020-09-19] MEDS: POTASSIUM CHLORIDE 20 MEQ TABLET 40 MEQ PO (15:17)
== END 2020-09-19 16:40 | disposition home or self-care (01) | DRG 177 ==
LOC: ANHED 16:27 → ANH3MEDSUR 18:07
PROVIDERS: Internal Medicine; Admitting Provider Internal Medicine; Emergency Provider Emergency Medicine; PCP Family Medicine; Visit Provider Internal Medicine
DX: U07.1 COVID-19 (principal); J12.82 Pneumonia due to coronavirus disease 2019; Z68.43 Body mass index [BMI] 50.0-59.9, adult; I13.0 Hypertensive heart and chronic kidney disease with heart failure and stage 1 through stage 4 chronic kidney disease, or unspecified chronic kidney disease; E11.22 Type 2 diabetes mellitus with diabetic chronic kidney disease; N18.9 Chronic kidney disease, unspecified; I50.9 Heart failure, unspecified; E08.65 Diabetes mellitus due to underlying condition with hyperglycemia; G47.33 Obstructive sleep apnea (adult) (pediatric); E66.01 Morbid (severe) obesity due to excess calories; M19.90 Unspecified osteoarthritis, unspecified site; E03.9 Hypothyroidism, unspecified; E04.1 Nontoxic single thyroid nodule; M17.0 Bilateral primary osteoarthritis of knee; E27.9 Disorder of adrenal gland, unspecified; K21.9 Gastro-esophageal reflux disease without esophagitis; E78.2 Mixed hyperlipidemia; F32.9 Major depressive disorder, single episode, unspecified
CPT/HCPCS: 36415; 51701; 71046; 71275; 80048; 80053; 80076; 81001; 82565; 82728; 82948; 83605; 83615; 83690; 84460; 84484; 85025; 85027; 85380; 85610; 85730; 86140; 87040; 93005; 94640; 96365; 96366; 96367; 99285; A9270; C9803; G0378; J0456; J0696; J1100; J1650; J1815; Q9967; U0003; U0005

== ENCOUNTER 2021-02-07 05:37 | Outpatient (CLI) | payer MEDICARE, MEDICAID, SELFPAY ==
[2021-02-06 12:15] VITALS: BMI 54.6
--- NOTE | 2021-02-06 12:31 | PC.NURSE ---
Report to the Outpatient Waiting Room, entrance under the green pavilion located off [facility], at time 0830 on date 02/07/21. OR Time: 1030 (THYROID US, [address] LIVER [address]). - You will be asked a series of questions to screen for COVID 19 for your protection. - A mask is required within the hospital. - No visitors are allowed at this time. Patient visitors will be guided where to wait when not with patient. Preoperative COVID Testing Requirements: No COVID Test needed if: (proof is required; if not received patient will have Rapid Test prior to entry) - Patient has received COVID Vaccine at least 14 days prior to procedure date or - Patient has positive COVID test result within last 90 days of surgery date. - No food/DRINK FOR 6 HOURS PRIOR TO PROCEDURE Take the following medications with a SIP of water the morning of surgery: NPO Medications to discontinue per physician: ASPIRIN Date to take last dose: 01/30/21 Please no make-up, nail tajik, hairspray, perfume, deodorant, or body powder the day of surgery. No jewelry (including any body piercings) or valuables the day of surgery, leave them at home. Please take a shower or bath the night before, or the morning of, surgery with an antibacterial soap. Wear comfortable, loose fitting clothing. - Jewelry must be removed prior to entering the operating room. Rings and piercings that are not removed may be cut off. - The hospital will not accept responsibility for valuables. - Please leave all valuables, including medications, at home the day of surgery. If you are going home after surgery, a licensed regional refrigerated cdl truck driver must drive you home. - NO public transportation without another adult. - We recommend that an adult stay with you for 24 hours following discharge. - We also recommend that you do not drive, make important decision, drink alcoholic beverages, or take any drugs that were not prescribed by your health care provider for at least 24 hours after your discharge time. Follow any additional instructions given to you from your surgeon. Telephone instructions given to CJ RAGLAND and asked if any additional questions and then verbalized understanding. Patient advised to call surgeon office or pre surgery nurse liaison [phone] if any additional questions.
[2021-02-07] VITALS (12 sets, daily range): BP systolic 125–154; BP diastolic 65–86; PULSE 67–93; RESP 14–18; TEMP 36.5; O2SAT 93–97
--- NOTE | ~2021-02-07 | US_ITS ---
EXAMINATION: US bx liver DATE: 02/07/2021 11:41 INDICATION: Other specified disease of liver TECHNIQUE: The procedure including the risks and benefits was discussed with the patient. Risks discu ssed included bleeding and infection. The patient understood the risks and agreed to proceed. The sk in overlying the subxiphoid left hepatic lobe was prepped and draped in usual sterile fashion. Anest hetic was administered with 1% lidocaine subcutaneously. An 18 gauge core biopsy needle was advanced under continuous ultrasound observation to the lesion of interest. 3 core biopsy specimens were obt ained. The needle was removed and the entry site was cleaned and dressed. Post procedure ultrasound demonstrated no hemorrhage. FINDINGS: Ultrasound images demonstrate nodular liver surface consistent with cirrhosis. Subsequent i mages demonstrate the biopsy needle advanced into the lateral segment of the left hepatic lobe. IMPRESSION: 1. Successful Ultrasound-guided random left liver biopsy. 2. Cirrhosis. Reviewed, dictated and finalized at location A. BEATER
--- NOTE | ~2021-02-07 | US_ITS ---
EXAMINATION: US thyroid EXAM DATE: 02/07/2021 11:44 INDICATION: E04.1 - Nontoxic single thyroid nodule TECHNIQUE: Multiple grayscale and Doppler images of the thyroid were obtained (by a technologist who performed the scan) and subsequently reviewed. Individual nodules and recommendations may be reporte d in accordance with TI-RADS system as designated by the 2017 ACR White Paper TI-RADS committee. The re is no prior study for comparison. FINDINGS: The right there are lobe measures 7.2 x 4.9 x 4.1 cm, the left measuring 5.1 x 1.3 x 1.2 cm. Mildly h eterogeneous thyroid parenchyma. Most of the right thyroid lobe size is taken up by a nodule measuring 6.2 x 4.9 x 3.9 cm, predominant ly solid (2 points), hypoechoic (2 points), wider than tall, smooth well defined margin, without echo genic foci, category TR4 for this nodule. IMPRESSION: Large right thyroid lobe nodule; ultrasound-guided FNA as indicated. Reviewed, dictated and finalized at location A. EL ADMINISTRATOR IMPRESSION: Large right thyroid lobe nodule; ultrasound-guided FNA as indicated .
[2021-02-07 09:06] LABS: Glucose Point of Care 156 mg/dl (65-105)
[2021-02-07 09:06] LABS: Mean Platelet Volume 9.9 fl (7.4-10.4); Platelet Count Result 257 k/mm3 (150-375)
[2021-02-07 13:01] LABS: Glucose Point of Care 117 mg/dl (65-105)
--- NOTE | 2021-02-07 15:35 | SUR.PHASEII ---
PT MEETS DISCHARGE CRITERIA AND IS WAITING FOR HER RIDE.
== END 2021-02-07 15:56 | disposition home or self-care (01) ==
PROVIDERS: PCP Family Medicine; Visit Provider Radiology Diagnostic Radiology
DX: K76.89 Other specified diseases of liver (principal); E04.1 Nontoxic single thyroid nodule; K74.60 Unspecified cirrhosis of liver
CPT/HCPCS: 36415; 47000; 76536; 82948; 85049; 85610; 88307; 88312; 88313

== ENCOUNTER → 2021-02-21 13:01 | Outpatient (CLI) | payer MEDICARE, MEDICAID, SELFPAY ==
--- NOTE | ~2021-02-21 | XR_ITS ---
EXAMINATION: XR chest 2V DATE: 02/21/2021 13:22 INDICATION: Bronchitis, not specified as acute or chronic. TECHNIQUE: Frontal and lateral views of the chest were obtained. COMPARISON: Chest 2 views 09/14/2020, chest CT 09/14/2020 FINDINGS: The chest demonstrates clear lungs without pneumonia, pleural effusion, or pneumothorax. Th e heart size is normal. There is leftward deviation of the trachea at the thoracic inlet secondary to a goiter. IMPRESSION: 1. No acute cardiopulmonary disease. Reviewed, dictated and finalized at location B. UTER GRAPHIC ARTIST
== END ==
PROVIDERS: PCP Family Medicine; Visit Provider Family Medicine
DX: J40 Bronchitis, not specified as acute or chronic (principal)
CPT/HCPCS: 71046

== ENCOUNTER 2021-02-22 13:12 | Outpatient (CLI) | payer MEDICARE, MEDICAID, SELFPAY ==
--- NOTE | ~2021-02-22 | US_ITS ---
EXAMINATION: US FNA w image guidance DATE: 02/22/2021 14:05 INDICATION: Nontoxic single right thyroid nodule TECHNIQUE: A time-out was performed to verify the patient's name, date of , and procedure to be performed . The procedure and its benefits and risks were discussed with the patient. Risks specifically discus sed included bleeding and infection. The patient understood the risks and agreed to proceed. The neck was prepped and draped in the usual sterile manner. 3 mL 1% lidocaine was used for local anesthesia . 6 passes were made with a 25G needle into the lesion. Appropriate needle location was documented with continuous sonographic guidance. The specimens were passed to the ocular care technologist in the room. A sterile bandage was applied. There were no immediate complications. FINDINGS: Grayscale ultrasound images demonstrate biopsy needles advanced into a 6.4 x 4.6 x 4.0 cm predominant ly solid TI RADS 4 right thyroid mass. IMPRESSION: 1. Successful ultrasound-guided fine needle aspiration of a 6.4 cm TI RADS 4 right thyroid mass. Reviewed, dictated and finalized at location A. PILOT DISPATCHER IMPRESSION: 1. Successful ultrasound-guided fine needle aspiration of a 6.4 cm TI RADS 4 r ight thyroid mass.
== END 2021-02-22 13:13 | disposition home or self-care (01) ==
LOC: ANHIMG 13:17
PROVIDERS: PCP Family Medicine; Visit Provider Family Medicine
DX: E04.1 Nontoxic single thyroid nodule (principal)
CPT/HCPCS: 10005; 88173; 88305

== ENCOUNTER → 2021-06-01 14:54 | Outpatient (CLI) | payer MEDICARE, MEDICAID, SELFPAY ==
--- NOTE | ~2021-06-01 | CT_ITS ---
EXAMINATION: CT abdomen pelvis w con DATE: 06/01/2021 15:33 INDICATION: Benign neoplasm of the adrenal gland TECHNIQUE: Computed tomography (CT) of the abdomen and pelvis was performed with 100 mL Omnipaque-350 intravenous contrast. Automated exposure control and iterative reconstruction technique were employe d. The dose-length product was 1059.71 mGy-cm. COMPARISON: Chest CT dated 09/14/2020 FINDINGS: Lung bases are clear. Heart size is normal. No pericardial or pleural effusion. Nodular cirrhotic willis er. Prominent left gastrorenal collateral veins consistent with portal venous hypertension. [place] er, spleen, pancreas, left adrenal gland and bilateral kidneys are normal. No significant change in a 2 cm right adrenal nodule statistically most likely to represent an adenoma. Bowels including the ap pendix are normal. Bladder, uterus and bilateral adnexa are unremarkable. No free intraperitoneal gas or fluid. No pathologically enlarged abdominal or pelvic lymphadenopathy. Mild degenerative skeletal changes in the spine and pelvis. IMPRESSION: 1. No significant interval change in a 2 cm right adrenal nodule statistically most likely to represe nt an adenoma. 2. Cirrhosis with portal venous hypertension. Reviewed, dictated and finalized at location A. IMPRESSION: 1. No significant interval change in a 2 cm right adrenal nodule statistically most likely to represent an adenoma. 2. Cirrhosis with portal venous hypertension.
[2021-06-01 15:19] LABS: Estimated Glomerular Filt Rate > 60
== END ==
PROVIDERS: PCP Family Medicine; Visit Provider Family Medicine
DX: D35.00 Benign neoplasm of unspecified adrenal gland (principal); K74.60 Unspecified cirrhosis of liver; K76.6 Portal hypertension
CPT/HCPCS: 74177; Q9967

== ENCOUNTER 2022-09-17 13:25 | Outpatient (CLI) | payer MEDICARE, MEDICAID, SELFPAY ==
--- NOTE | ~2022-09-17 | XR_ITS ---
Left Forearm AP and lateral views of the left forearm were performed. Clinical History: Pain Findings: No fracture or dislocation is seen. Osseous alignment in anatomic. Joint spaces are prese rved. Soft tissues are unremarkable. Impression: Unremarkable exam. Reviewed, dictated and finalized at location M. Impression: Unremarkable exam.
--- NOTE | ~2022-09-17 | XR_ITS ---
Right Forearm AP and lateral views of the right forearm were performed. Clinical History: Pain Findings: No fracture or dislocation is seen. Osseous alignment in anatomic. Joint spaces are prese rved. Soft tissues are unremarkable. Impression: Unremarkable exam. Reviewed, dictated and finalized at location M. Impression: Unremarkable exam.
--- NOTE | ~2022-09-17 | XR_ITS ---
Left Knee Technique: AP, lateral, and oblique views were obtained. Clinical History: Pain Findings: No fracture or dislocation is seen. There is advanced tricompartmental osteoarthritis.. Sof t tissues are unremarkable. No joint effusion is seen. Impression: Advanced tricompartmental osteoarthritis, with medial compartment narrowing. No acute fracture. Reviewed, dictated and finalized at location . Impression: Advanced tricompartmental osteoarthritis, with medial compartment narrowing. No acute fracture.
--- NOTE | ~2022-09-17 | XR_ITS ---
Left elbow Technique: AP and lateral views were obtained. Clinical History: Pain Findings: No acute fracture or dislocation is seen. Osseous alignment is anatomic. Joint spaces are p reserved. There is no displacement of the fat pads, and soft tissues are unremarkable. Impression: Unremarkable radiographs. Reviewed, dictated and finalized at location . Impression: Unremarkable radiographs.
== END 2022-09-17 13:26 | disposition home or self-care (01) ==
PROVIDERS: PCP Family Medicine; Visit Provider Physician Assistant Medical
DX: M25.562 Pain in left knee (principal); M79.632 Pain in left forearm
CPT/HCPCS: 73070; 73090; 73562

== ENCOUNTER 2022-11-29 00:36 | Day surgery (SDC) | payer MEDICARE, MEDICAID, SELFPAY ==
[2022-11-26 15:19] VITALS: BMI 56.9
[2022-11-29 13:28] VITALS: BP 180/88; PULSE 100; RESP 18; TEMP 36.6; O2SAT 96
[2022-11-29 13:29] VITALS: BMI 56.5
[2022-11-29 13:37] LABS: Glucose Point of Care 175 mg/dl (65-105)
[2022-11-29] MEDS: LACTATED RINGERS 1,000 ML 150 ML IV CONT (13:41)
--- NOTE | 2022-11-29 13:47 | WPDANESEPPF ---
Anes - Initial Pre Proc Eval Procedure: Operation Date: 11/29/22 14:30 Proposed Procedures p Esophagogastroduodenoscopy - Martín Yanez MD Date/Time: 11/29/22 13:47 Surgeon: Martín Yanez MD Pre Op Diagnosis: epigastric pain, unspecified cirrhosis of liver Patient Data Age: 67 Gender: F Height: 1.6 m Weight: 144.6 kg Last Vital Signs Temp 97.9 F 11/29/22 13:28 Pulse 100 11/29/22 13:28 Resp 18 11/29/22 13:28 BP 180/88 H 11/29/22 13:28 Pulse Ox 96 11/29/22 13:28 O2 Del Method Room Air 11/29/22 13:28 Allergies Allergy/AdvReac Type Severity Reaction Status Date / Time exenatide Allergy Intermediate Hives Verified 11/29/22 13:27 saxagliptin Allergy Intermediate Hives Verified 11/29/22 13:27 Home Medications Medication Instructions Recorded Confirmed Type aspirin 81 mg tablet,delayed 81 mg PO DAILY 01/29/19 11/29/22 History release (Adult Low Dose Aspirin) pen needle, diabetic 32 gauge x #90 ea 03/23/19 11/29/22 Rx 5/32 (ReliOn Pen [place]) albuterol sulfate 90 mcg/actuation 1 inh inhalation Q6H PRN shortness 08/08/20 11/29/22 Rx aerosol inhaler of breath or wheezing #18 grams fluticasone propionate 50 1 spray intranasal DAILY PRN 09/14/20 11/29/22 History mcg/actuation nasal Allergy Symptoms spray,suspension (Allergy Relief (fluticasone)) levothyroxine 50 mcg tablet 50 mcg PO DAILY 09/14/20 11/29/22 History paroxetine HCl 40 mg tablet 40 mg PO DAILY #90 tabs 01/28/22 11/29/22 Rx nystatin 100,000 unit/gram topical 1 applic topical BID #60 grams 03/27/22 11/29/22 Rx powder hydrocortisone 1 % topical cream 1 applic topical TID PRN itching 04/25/22 11/29/22 Rx #28.35 grams naloxone 4 mg/actuation nasal 4 mg intranasal Q2M PRN opioid 04/25/22 11/29/22 Rx spray (Narcan) overdose #2 ea empagliflozin 25 mg tablet 25 mg PO QAM #90 tabs 04/29/22 11/29/22 Rx (Jardiance) potassium chloride 10 mEq 10 meq PO DAILY #90 caps 04/29/22 11/29/22 Rx capsule,extended release primidone 50 mg tablet See Rx Instructions .Route 08/20/22 11/29/22 Rx .COMPLEX #60 tabs atorvastatin 10 mg tablet 10 mg PO DAILY #90 tabs 09/01/22 11/29/22 Rx furosemide 40 mg tablet (Lasix) 40 mg PO QAM #90 tabs 09/01/22 11/29/22 Rx metformin 1,000 mg tablet 1,000 mg PO BID #180 tabs 09/01/22 11/29/22 Rx pantoprazole 40 mg tablet,delayed 40 mg PO QAM #90 tabs 09/01/22 11/29/22 Rx release lisinopril 20 1 tablet PO DAILY #90 tabs 09/15/22 11/29/22 Rx mg-hydrochlorothiazide 12.5 mg tablet bupropion HCl 150 mg 24 hr tablet, 150 mg PO QAM #90 tabs 10/20/22 11/29/22 Rx extended release pantoprazole 40 mg tablet,delayed 40 mg PO BID 30 days #60 tabs 11/07/22 11/29/22 Rx release ondansetron HCl 8 mg tablet See Rx Instructions .Route 11/20/22 11/29/22 Rx .COMPLEX #20 tabs hydrocodone 5 mg-acetaminophen 325 1 tablet PO Q8H PRN pain #90 tabs 11/25/22 11/29/22 Rx mg tablet semaglutide 2 mg/dose (8 mg/3 mL) 2 mg (0.75 mL) subcut WEEKLY #3 mL 11/25/22 11/29/22 Rx subcutaneous pen injector (Ozempic) diphenhydramine HCl 25 mg capsule 25 mg PO BID 11/26/22 11/29/22 History (Benadryl) ferrous sulfate 325 mg (65 mg 325 mg PO BID 11/26/22 11/29/22 History iron) tablet linaclotide 290 mcg capsule 290 mcg PO DAILY 11/26/22 11/29/22 History (Linzess) alprazolam 1 mg tablet (Xanax) 1 mg PO TID PRN anxiety #90 tabs 11/28/22 11/29/22 Rx Laboratory Tests 11/29/22 13:35 POC Capillary Glucose 175 H mg/dl (65-105) Patient hx anesthesia problems: none Family hx anesthesia problems: none Results Review: All pre-operative results and documents have been reviewed as part of the pre-operative evaluation. [facility] Past Medical History Medical History (Updated 11/18/22 @ 15:00 by Amelia Ling, GENERAL LABOR-C) Adrenal adenoma Anemia Ataxia Bilateral primary osteoarthritis of knee BMI 50.0-59.9, adult BMI 60.0-69.9, adult Breast pain Bron
--- NOTE | 2022-11-29 13:54 | WPDHPUPDATE1 ---
History and Physical Update Update Date/Time: 11/29/22 13:54 History and Physical has been reviewed, including an updated exam of the patient. There are NO changes in the patient's condition. Risks, benefits, and alternatives have been discussed and questions answered. Patient agrees to proceed with procedure.
[2022-11-29 14:08] VITALS: BP 159/85; PULSE 92; RESP 20; O2SAT 95
[2022-11-29 14:18] VITALS: BP 151/83; PULSE 89; RESP 21; O2SAT 97
[2022-11-29 14:28] VITALS: BP 142/81; PULSE 88; RESP 16; O2SAT 95
--- NOTE | 2022-11-29 14:52 | SUR.PHASEII ---
had delay picking up patient.
== END 2022-11-29 15:00 | disposition home or self-care (01) ==
PROVIDERS: PCP Family Medicine; Visit Provider Internal Medicine Gastroenterology
PROC: 0DJ08ZZ Inspection of Upper Intestinal Tract, Via Natural or Artificial Opening Endoscopic (ICD-10-PCS; CPT 43235; principal; 2022-11-29 14:30)
DX: K29.50 Unspecified chronic gastritis without bleeding (principal); K74.60 Unspecified cirrhosis of liver; I85.10 Secondary esophageal varices without bleeding; I12.9 Hypertensive chronic kidney disease with stage 1 through stage 4 chronic kidney disease, or unspecified chronic kidney disease; E11.22 Type 2 diabetes mellitus with diabetic chronic kidney disease; N18.30 Chronic kidney disease, stage 3 unspecified; E78.2 Mixed hyperlipidemia; G47.33 Obstructive sleep apnea (adult) (pediatric); D64.9 Anemia, unspecified; F41.8 Other specified anxiety disorders; E66.01 Morbid (severe) obesity due to excess calories; Z68.43 Body mass index [BMI] 50.0-59.9, adult; Z87.891 Personal history of nicotine dependence; Z79.51 Long term (current) use of inhaled steroids; Z79.82 Long term (current) use of aspirin; Z79.84 Long term (current) use of oral hypoglycemic drugs; Z79.891 Long term (current) use of opiate analgesic; Z79.85 Long-term (current) use of injectable non-insulin antidiabetic drugs
CPT/HCPCS: 43239; 82948; 88305; J2704; J7120

== ENCOUNTER 2022-12-05 08:50 | Outpatient (CLI) | payer MEDICARE, MEDICAID, SELFPAY ==
--- NOTE | ~2022-12-05 | US_ITS ---
US abdomen limited INDICATION: Cirrhosis of the liver PROCEDURE: Realtime right upper abdominal ultrasound. COMPARISON: No prior studies for comparison. FINDINGS: The pancreas is normal without focal mass or pancreatic ductal dilation. For echotexture i s heterogeneous with nodular liver surface, consistent with cirrhosis. There is normal directional f low in the portal vein. The gallbladder is normal without stones, gallbladder wall thickening or pericholecystic fluid. Comm on bile duct measures 5 mm. No sonographic Chaparro's sign. IMPRESSION: 1: Cirrhosis of the liver. Reviewed, dictated and finalized at location L. IMPRESSION: 1: Cirrhosis of the liver.
== END 2022-12-05 08:51 | disposition home or self-care (01) ==
PROVIDERS: PCP Family Medicine; Visit Provider Nurse Practitioner Family
DX: K74.60 Unspecified cirrhosis of liver (principal); R10.13 Epigastric pain
CPT/HCPCS: 76705

== ENCOUNTER 2023-08-29 09:38 | Outpatient (CLI) | payer MEDICARE, MEDICAID, SELFPAY ==
--- NOTE | ~2023-08-29 | NM_ITS ---
EXAMINATION: NM luz stress w perfusion DATE: 08/29/2023 12:10 INDICATION: Chest pain TECHNIQUE: Rest images were obtained following intravenous administration of 9.5 mCi Tc99m tetrofosmi n (Myoview). The patient was infused intravenously with Lexiscan (Regadenoson). Then, 31 mCi Tc99m te trofosmin (Myoview) was administered intravenously, and stress images were obtained. Data was reconst ructed into short axis and horizontal and vertical long axis SPECT images. Gated SPECT images were al so obtained. COMPARISON: None. FINDINGS: Moderate to large region of nonreversible moderately decreased perfusion consistent with in farct involving the apical anterior, mid anterior, basilar anterior, mid anterolateral and basilar an terolateral segments in the left anterior descending coronary artery vascular distribution. Additiona l small region of nonreversible mild decreased perfusion at the mid inferior segment which is not see n on the gated post stress imaging, equivocal for infarct versus diaphragmatic attenuation artifact. There is normal left ventricular chamber size, wall motion and ejection fraction. Left ventricular e jection fraction measures 67%. IMPRESSION: 1. Moderate to large, moderate severity nonreversible infarct involving primarily the left anterior d escending coronary artery vascular distribution along the anterior and anterolateral wagner. No revers ible ischemia. 2. Equivocal small mild nonreversible infarct along the mid inferior segment versus diaphragmatic att enuation artifact. 2. Left ventricular ejection fraction measuring 67%. Reviewed, dictated and finalized at location A. IMPRESSION: 1. Moderate to large, moderate severity nonreversible infarct involving primari ly the left anterior descending coronary artery vascular distribution along the anterior and anterolateral wagner. No reversible ischemia. 2. Equivocal small mild nonreversible infarct along the mid inferior segment ve rsus diaphragmatic attenuation artifact. 2. Left ventricular ejection fraction measuring 67%.
--- NOTE | 2023-08-29 09:44 | EST_ITS ---
Patient Info Name: Jaida Aguilera Age: 68 years : 1955 Gender: Female Ht: 64 in Wt: 304 lbs BSA: 2.58 m2 HR: 88 bpm BP: 120 / 62 mmHg Exam Date: 08/29/2023 11:16 AM Exam Location: Echo Lab Patient Status: Outpatient Admit Date: 08/29/2023 Staff Ordering Physician: Rashard Wan DO Attending Provider: Rashard Wan DO Exercise Technologist: Raven Jimenez RDCS Exercise Physician: Rashard Wan DO Exam Type: CA stress luz w NM Study Info A regadenoson stress test was performed. Summary 1. 1. Negative lexiscan stress test for ischemic ST changes by ECG criteria. 2. 2. Stable hemodynamics throughout the test. 3. 3. Nuclear scan to follow and will be reported separately. Please correlate with it. 4. 4. Patient informed of the above results. Protocol: Lexiscan Stress ECG Details Stage: REST Duration (min): 1 min : 17 sec HR (bpm): 88 SBP (mmHg): 120 DBP (mmHg): 62 Stage: REST Duration (min): 6 min : 27 sec HR (bpm): 89 SBP (mmHg): 120 DBP (mmHg): 62 Stage: STAGE 1 Duration (min): 1 min : 0 sec HR (bpm): 98 SBP (mmHg): 116 DBP (mmHg): 61 Stage: RECOVERY Duration (min): 1 min : 0 sec HR (bpm): 96 SBP (mmHg): 116 DBP (mmHg): 61 Stage: RECOVERY Duration (min): 2 min : 0 sec HR (bpm): 98 SBP (mmHg): 116 DBP (mmHg): 61 Stage: RECOVERY Duration (min): 3 min : 0 sec HR (bpm): 95 SBP (mmHg): 107 DBP (mmHg): 54 Stage: RECOVERY Duration (min): 3 min : 14 sec HR (bpm): 96 SBP (mmHg): 107 DBP (mmHg): 54 Rest HR: 89 bpm Peak HR: 112 bpm Rest Sys BP: 120 mmHg Peak Sys BP: 116 mmHg Max Pred HR: 153 bpm % Max Pred HR: 73 % Target HR: 130 bpm Max RPP: 12,992 bpm*mmHg Termination Reason: Completed protocol Cardiac Symptoms: Shortness of breath Total Time: 1 min : 0 sec Rest Crocker BP: 62 mmHg Peak Crocker BP: 61 mmHg Total Dose: 0.4 mg Resting ECG Sinus rhythm, RBBB, LAFB. Stress ECG No ST changes. Arrhythmias None. Report Signatures
== END 2023-08-29 09:39 | disposition home or self-care (01) ==
LOC: ANHCARD 09:39
PROVIDERS: PCP Family Medicine; Visit Provider Internal Medicine Cardiovascular Disease
DX: R07.9 Chest pain, unspecified (principal); I25.2 Old myocardial infarction
CPT/HCPCS: 78452; 93017; A9502; J2785

== ENCOUNTER 2023-12-25 11:07 | Outpatient (CLI) | payer MEDICARE, MEDICAID, SELFPAY ==
--- NOTE | ~2023-12-25 | US_ITS ---
EXAM: ABDOMEN ULTRASOUND HISTORY: K74.60 - Unspecified cirrhosis of liver COMPARISON: 12/05/2022 FINDINGS: LIVER: The liver is homogeneous in echogenicity and increased in size measuring 23 cm in longitudinal dimension. The main portal vein is patent demonstrating hepatopedal (but phasic) flow. Surface of the liver is nodular, unchanged. GALLBLADDER: The gallbladder is decompressed, but otherwise unremarkable. No gallbladder wall thickening or pericholecystic fluid. BILE DUCTS: Common bile duct measures 5.1mm. PANCREAS: Limited evaluation of the pancreas secondary to overlying bowel gas VASCULATURE : The IVC is patent. IMPRESSION: Nodular contour of the enlarged liver. Phasic flow within the main portal vein. No lesions identified sonographically within the liver Reviewed, dictated and finalized at location A. BILITY CASE MANAGER
[2023-12-25 12:30] LABS: Hematocrit 44.5 % (37.0-47.0); Hemoglobin 14.1 g/dL (12.0-15.0); Mean Corpuscular HGB Conc 31.7 g/dl (32-36); Mean Corpuscular Hemoglobin 28.6 pg (26-34); Mean Corpuscular Volume 90.3 fl (80-100); Mean Platelet Volume 10.4 fl (7.4-10.4); Platelet Count Result 227 k/mm3 (150-375); Red Blood Count 4.93 M/mm3 (4.2-5.4); Red Cell Distribution Width 13.8 % (11.5-14.5); White Blood Count 8.8 K/mm3 (4.5-10.0)
[2023-12-25 12:42] LABS: Prothrombin Time 13.2 Seconds (11.1-14.7)
[2023-12-25 21:16] LABS: Alanine Aminotransferase 25 U/L (6-35); Albumin Level 3.9 g/dL (3.5-5.1); Alkaline Phosphatase 124 U/L (38-126); Anion Gap 10 mmol/L (4-12); Aspartate Amino Transferase 25 U/L (14-36); Bilirubin,Total 0.4 mg/dL (0.2-1.3); Blood Urea Nitrogen 17 mg/dL (7-17); Calcium 9.2 mg/dL (8.4-10.2); Carbon Dioxide 25 mmol/L (22-30); Chloride 102 mmol/L (98-107); Estimated Glomerular Filt Rate > 60; Glucose 122 mg/dL (65-110); Potassium 3.9 mmol/L (3.4-5.0); Sodium 137 mmol/L (137-145)
== END 2023-12-25 11:08 | disposition home or self-care (01) ==
PROVIDERS: PCP Family Medicine; Visit Provider Nurse Practitioner Family
DX: K74.60 Unspecified cirrhosis of liver (principal)
CPT/HCPCS: 36415; 76705; 80053; 82105; 85027; 85610

== ENCOUNTER 2024-05-06 00:32 | Day surgery (SDC) | payer MEDICARE, MEDICAID, SELFPAY ==
[2024-04-26 12:57] VITALS: BMI 54.8
--- OUTSIDE RECORDS SUMMARY | 2024-05-06 00:35 | XMS_ITS | Clinical Summary ---
Author Organization [facility] Address [address] [address] Care Team Providers Care Manufacturing Engineer Automotive Name Role Phone Jagjit Felton MD Primary Care Provider [phone] Source Comments [facility],non-owned Affiliates and Associated Physician Practices is amultiple site organization consisting of ambulatory clinics and hospital sitesin [place], [place], [place] and [place]. This disclosure is being madepursuant to the Care Everywhere program and may not contain all information available regarding this patient. Last updated 17.[facility] [employer] Social History Tobacco Use Types Packs/Day Years Used Date Smoking Tobacco: Never Assessed Sex and Gender Information Value Date Recorded Sex Assigned at Not on file Gender Identity Not on file Sexual Orientation Not on file Plan of Treatment Health Maintenance Due Date Last Done Comments BONE DENSITY TESTING 1955 COLOGUARD (AGES 45-75) - COL ON CA SCREENING 1955 COLON MONITORING 1955 COLONOSCOPY - COLON CA SCREENING 1955 CT COLONOGRAPHY - COLON CA SCREENING 1955 Colorectal Cancer Screening 1955 FIT - COLON CA SCREENING 1955 FLEX SIG - COLON CA SCREENING 1955 LIPID TESTING 1955 MAMMOGRAM 1955 HEPATITIS C SCREENING 08/23/1974 DTAP/TDAP/TD VACCINES (1 - Tdap) 08/28/1975 PNEUMOCOCCAL VACCINE 50+ (1 of 1 - PCV) 2006 ZOSTER VACCINE (1 of 2) 2006 COVID-19 VACCINE ( - 2023-2 5 season) 2023 INFLUENZA VACCINE (#1) 2023 DEPRESSION SCREENING 02/11/2024 MEDICARE AWV CALENDAR YEAR 2024 Respiratory Syncytial Virus (RSV) Vaccine Pt: or over 60 yrs (1 - 1-dose 75+ series) 08/28/2031 HEPATITIS B VACCINE Aged Out No longe r eligible based on patient's age to complete this topic HIB VACCINE Aged Out No longer eligi ble based on patient's age to complete this topic HPV VACCINE Aged Out No longer eligi ble based on patient's age to complete this topic MENINGOCOCCAL (Group B) VACC INE SHARED DECISION-MAKING Aged Out No longer eligibl e based on patient's age to complete this topic MENINGOCOCCAL GROUPS A/C/Y/W VACCINE Aged Out No longer eligible b ased on patient's age to complete this topic Care Teams Manufacturing Engineer Automotive Relationship Specialty Start Date End Date Jagjit Felton MD [address] [place] [address] PCP - General 02/08/21
--- OUTSIDE RECORDS SUMMARY | 2024-05-06 00:35 | XMS_ITS | Clinical Summary ---
Author Organization [facility] Address [address] [place] [id number] Phone Care Team Providers Care Molecular Technologist Name Role Phone Jagjit Felton MD Primary Care Provider [phone] Allergies No known active allergies Medications Medication Sig Dispensed Refills Start Date End Date Status aspirin 81 MG chewable tablet 10/04/2011 Active ALPRAZolam (XANAX) 1 MG tablet 10/04/2011 Active metFORMIN (GLUCOPHAGE) 1000 MG tablet 1 bid 10/04/2011 Active cetirizine (ZyrTEC HIVES RELIEF) 10 MG tablet 10/04/2011 Active lisinopril-hydroCHLO ROthiazide (PRINZIDE,ZESTORETIC ) 20-12.5 MG per tablet 1 daily 0 12/10/2017 Active albuterol HFA (PROAIR HFA) 108 (90 Base) MCG/ACT inhaler 2 puffs as needed 0 04/16/2017 Active fluticasone (FLONASE) 50 MCG/ACT nasal spray 1 puff daily 0 04/16/2017 Active primidone (MYSOLINE) 50 MG tablet 1 daily 0 04/16/2017 Active levothyroxine (SYNTHROID, LEVOTHROID) 50 MCG tablet 10/04/2011 Active omega-3 (FISH OIL) 1000 MG capsule 2 daily 04/06/2014 Active potassium chloride (MICRO-K) 10 MEQ CR capsule Take 10 mEq by mouth 1 (one) time each day 12/24/2018 Active furosemide (LASIX) 40 MG tablet Take 40 mg by mouth 1 (one) time each day 01/12/2019 Active ondansetron (ZOFRAN) 8 MG tablet TAKE 1 TABLET BY MOUTH TWICE DAILY NEEDED FOR NAUSEA 12/10/2018 Active pantoprazole (PROTONIX) 40 MG EC tablet Take 40 mg by mouth 1 (one) time each day 01/08/2019 Active NARCAN 4 MG/0.1ML liquid ADMINISTER A SINGLE SPRAY IN ONE NOSTRIL UPON SIGNS OF OPIOID OVERDOSE. CALL 911. REPEAT AFTER 3 MINUTES IF NO RESPONSE. 11/19/2018 Active mupirocin (BACTROBAN) 2 % ointment APPLY A SMALL AMOUNT TOPICALLY TO AFFECTED AREA TWICE DAILY 11/23/2018 Active LINZESS 72 MCG capsule Take 1 capsule by mouth 1 (one) time each day 01/22/2019 Active HYDROcodone-acetamin ophen (NORCO) 5-325 MG per tablet Take 1 tablet by mouth every 8 (eight) hours if needed for pain 01/19/2019 Active VICTOZA 18 MG/3ML injection 10/08/2019 Active atorvastatin (LIPITOR) 10 MG tablet Take 10 mg by mouth 1 (one) time each day 09/08/2019 Active Cholecalciferol (VITAMIN D3) 50 MCG (2000 UT) tablet Take by mouth Activ e buPROPion XL (WELLBUTRIN XL) 150 MG 24 hr tablet TAKE 1 TABLET BY MOUTH ONCE DAILY IN THE MORNING 05/15/2020 Active Jardiance 10 MG tablet 03/08/2020 Active nystatin (MYCOSTATIN) cream APPLY ONE APPLICATION TOPICALLY TWICE DAILY 04/11/2020 Active PARoxetine (PAXIL) 40 MG tablet Take 40 mg by mouth 1 (one) time each day 03/19/2020 Active Active Problems Problem Noted Date Diagnosed Date Vitamin D deficiency 10/11/2019 Gastro-esophageal reflux disease without esophag itis 04/16/2017 Obesity 04/16/2017 Hypertensive chronic kidney disease with stage 1 through stage 4 chronic kidney disease, or unspecified chronic kidney disease 09/27/2013 Type 2 diabetes mellitus wit h diabetic chronic kidney disease 08/22/2011 Stage 3a chronic kidney disease 08/22/2011 Immunizations Name Administration Dates Next Due Influenza TIV (IM) 05/29/2020(Deferred: Patient Refused) Family History Medical History Relation Comments Kidney disease Neg Hx Social History Tobacco Use Types Packs/Day Years Used Date Smoking Tobacco: Former Smokeless Tobacco: Never Alcohol Use Standard Drinks/Week Comments Not Currently 0 (1 standard drink = 0.6 oz pur e alcohol) Sex and Gender Information Value Date Recorded Sex Assigned at Not on file Gender Identity Not on file Sexual Orientation Not on file Last Filed Vital Signs Vital Sign Reading Time Taken Comments Blood Pressure 122/82 05/29/2020 1:42 PM CDT Pulse 84 05/29/2020 1:42 PM CDT Temperature 35.7 C (96.3 F) 05/29/2020 1:42 PM CDT Respiratory Rate - - Oxygen Saturation - - Inhaled Oxygen Concentration - - Weight 151 kg (333 lb) 05/29/2020 1:42 PM CDT Height 162.6 cm (5' 4 ) 05/29/2020 1:42 PM CDT Body Mass Index 57.16 05/29/2020 1:42 PM CDT Plan of Treatment Health Maintenance Due Date Last Done Comments Pneumococcal PPSV23/PCV13 65 + Years / High and Highest Risk (1 of 4 - PCV) 1962 Pneumococcal PPSV23/PCV13 65 + Years / Low and Medium Risk (1 of 4 - PCV) 2021 Influenza Vaccine (#1) 2023 Care Teams Molecular Technologist Relationship Specialty Start Date End Date Jagjit Felton MD [address] [place] [address] PCP - General Family Medicine 12/14/18
--- OUTSIDE RECORDS SUMMARY | 2024-05-06 00:35 | XMS_ITS | Encounter Summary ---
Author Organization [facility] Address [address] [place] [address] Care Team Providers Care Spinner Hand Name Role Phone Jagjit Felton MD Primary Care Provider [phone] Encounter Details Date Type Department Care Team (Late st Contact Info) Description 02/14/2021 Lab Requisition [facility] DermPath Lab [address] [place] [id number] Jagjit Felton MD [address] [place] [address] Social History Tobacco Use Types Packs/Day Years Used Date Smoking Tobacco: Never Assessed Sex and Gender Information Value Date Recorded Sex Assigned at Not on file Gender Identity Not on file Sexual Orientation Not on file documented as of this encounter Plan of Treatment Not on file documented as of this encounter Procedures Procedure Name Priority Date/Time Associated Diagnosis Comments DERMATOPATHOLOGY Routine 02/13/2021 12:0 0 AM PAYROLL AND BENEFITS SPECIALIST documented in this encounter Results * DERMATOPATHOLOGY (02/13/2021 12:00 AM PAYROLL AND BENEFITS SPECIALIST) Case Report Dermatopathology Report Case: [id number] Authorizing Provider: Jagjit Felton MD Collected: 02/13/2021 12:00 AM Ordering Location: [facility] Received: 02/14/2021 12:21 PM Pathologist: Enma Barnett MD Specimens: A) - Skin, right neck B) - Skin, right back 10:11 AM [facility] DERMAT[facility]Y [facility] Final Diagnosis Specimen A. SKIN, right neck: SEBORRHEIC KERATOSIS (L82.1) PRESENT AT MARGIN Specimen B. SKIN, right back: SEBORRHEIC KERATOSIS (L82.1) PRESENT AT MARGIN 2 10:11 AM [facility] Clinical History A-B: Changing lesion. Check margins. 2 10:11 AM [facility] Gross Description Specimen A: Received is one formalin filled container labeled with the patient's name and designated right neck. The specimen consists of a non-oriented ellipse of skin measuring [id number]. The epidermal surface consists of a centrally located [id number] nodule. The margin is inked green. The 12 o'clock and 6 o'clock tips are submitted in cassette 1. The remainder of the ellipse is serially sectioned and submitted in cassette 2-3. Jar 0. Specimen B: Received is one formalin filled container labeled with the patient's name and designated right back. The specimen consists of a shave biopsy measuring [id number], bisected. The margin is inked green. Jar 0. 2 10:11 AM [facility] Microscopic Description Specimen A. SKIN, right neck: Sections show an acanthotic lesion composed of relatively uniform keratinocytes. There is hyperkeratosis and pseudo horn cysts formation. This lesion is present at both tips of the specimen. Specimen B. SKIN, right back: Sections show an acanthotic lesion composed of relatively uniform keratinocytes. There is hyperkeratosis and pseudo horn cysts formation. This lesion is present at the margin of the specimen. 2 10:11 AM [facility] Disclaimer An external and internal positive and negative controls are appropriate for the histochemical, immunohistochemical and immunofluorescence stain(s) in this case (if any), except where stated explicitly. The performance characteristics of the stain(s) cited in this report were developed and its performance characteristic determined by the Dermatopathology Laboratory at [facility], directed by Dr. Gab Steven. These tests need not be, and therefore are not, approved by the [place] Food and Drug Administration. The tests are used for clinical purposes. Billing Codes Specimen Charges Stain Charges 23401 35528 1 1 2 10:11 AM [facility] DERMATOPATHOLOGY LABORATORY Embedded Images 2 10:11 AM [facility]EFITS SPECIALIST DERMATOPATHOLOGY LABORATORY Pathology/Cytology TISSUE SPECIMEN FROM SKIN / Unknown 02/13/2021 02/14/2021 12:21 PM PAYROLL AND BENEFITS SPECIALIST Miscellaneous samples (specimen) TISSUE SPECIMEN FROM SKIN / Unknown 02/13/2021 02/14/2021 12:21 PM PAYROLL AND BENEFITS SPECIALIST Jagjit Felton MD LAB - PATHOLOGY/CYTO LOGY ORDERABLES DERMATOPATHOLOGY LABORATORY [facility] - Department of Dermatology [facility] Medicine [address] [place] [address], [address] [phone] documented in this encounter Visit Diagnoses Not on filedocumented in this encounter Care Teams Spinner Hand Relationship Specialty Start Date End Date Jagjit Felton MD [address] [place] [address] PCP - General 02/08/21 documented as of this encounter
--- OUTSIDE RECORDS SUMMARY | 2024-05-06 00:35 | XMS_ITS | CONTINUITY OF CARE DOCUMENT ---
Author Name hany leach Address Unknown Organization [facility] Address [address] [place] [address] Phone [phone] Care Team Providers Care Medical Collections Name Role Phone Yousuf Valladares MD Unavailable INSURANCE PROVIDERS Payer name Policy type / Coverage type Lázaro red republican ID [employer]ILY [employer] Medicaid 1 [id number] [place] [employer] Medicare [id number]
--- OUTSIDE RECORDS SUMMARY | 2024-05-06 00:35 | XMS_ITS | Continuity of Care Document ---
Author Organization [facility] Address [address] [place] [address] [address] [place] [address] Phone Care Team Providers Care Registered Physical Therapist Name Role Phone Contreras OD, Terry Unavailable Unavailable Procedures Procedure Date Eye Exam & Treatment Dilated Retinal Exam W Interpretation Oc No Script Refraction Advance Directives Directive Yes / No Effective Date File Name No Information Encounters Encounter Description Practice Location Reason(s) For Visit Diagnoses Date Provider Providers Copied on Encounter [facility], [address] [place] [address] [address], [place], [place], [id number], [place] tel:[phone] [facility] No Information Nov-0 6-200 9 Contreras OD Terry. [address] [facility] [address] [facility] [facility] , [address], [place], [address], [place]. tel:[phone] Family History Family Member Type Diagnosis Age At Onset No Information Payers Payer name Insurance type Covered libertarian ID Authoriza tion(s) Medicare [facility] [id number] Medicaid [facility] [id number] Social History Type Description Quantity Date Captured Comments Sex Female Smoking Status No Information Chief Complaint And Reason For Visit No Information Reason For Referral Reason For Referral No Information History Of Present Illness Encounter Date Complaint History Of Prese nt Illness No Information Functional Status Date Functional Assessmen t No Information Instructions Date Instruction Additional Infor mation No Information Assessments Type Assessment Date No Information Patient Care Teams Name Effective Dates (start - stop) Status Members No Information
[2024-05-06 11:47] VITALS: BP 175/87; PULSE 102; RESP 16; TEMP 36.1; O2SAT 97; BMI 54.6
[2024-05-06] MEDS: LACTATED RINGERS 1,000 ML 150 ML IV CONT (11:58)
--- NOTE | 2024-05-06 12:48 | WPDANESEPPF ---
Anes - Initial Pre Proc Eval Procedure: Operation Date: 05/06/24 13:00 Proposed Procedures p Screening Colonoscopy - Martín Yanez MD Date/Time: 05/06/24 12:48 Surgeon: Martín Yanez MD Pre Op Diagnosis: Neoplasm Screening Patient Data Age: 68 Gender: F Height: 1.63 m Weight: 144.4 kg Last Vital Signs Temp 97 F L 05/06/24 11:47 Pulse 102 H 05/06/24 11:47 Resp 16 05/06/24 11:47 BP 175/87 H 05/06/24 11:47 Pulse Ox 97 05/06/24 11:47 O2 Del Method Room Air 05/06/24 11:47 Allergies Allergy/AdvReac Type Severity Reaction Status Date / Time exenatide Allergy Intermediate Hives Verified 05/06/24 11:45 saxagliptin Allergy Intermediate Hives Verified 05/06/24 11:45 Home Medications ?Medication ?Instructions ?Recorded ?Confirmed ?Type aspirin 81 mg tablet,delayed 81 mg PO DAILY 01/29/19 05/06/24 History release (Adult Low Dose Aspirin) pen needle, diabetic 32 gauge x #90 ea 03/23/19 04/06/24 Rx (ReliOn Pen [place]) levothyroxine 50 mcg tablet 50 mcg PO DAILY 09/14/20 05/06/24 History naloxone 4 mg/actuation nasal 4 mg intranasal Q2M PRN opioid 04/25/22 04/26/24 Rx spray (Narcan) overdose #2 ea diphenhydramine HCl 25 mg capsule 25 mg PO BID 11/26/22 04/26/24 History (Benadryl) ferrous sulfate 325 mg (65 mg 325 mg PO DAILY@0630 11/26/22 05/06/24 History iron) tablet propranolol 10 mg tablet 10 mg PO Q12H #60 tabs 05/09/23 05/06/24 Rx nystatin 100,000 unit/gram topical 1 applic topical BID #60 grams 06/27/23 04/26/24 Rx powder primidone 50 mg tablet See Rx Instructions .Route 10/02/23 05/06/24 Rx .COMPLEX #300 tabs hydrocortisone 1 % topical cream 1 applic topical TID PRN itching 11/25/23 04/26/24 Rx #28.35 grams empagliflozin 25 mg tablet 25 mg PO QAM #90 tabs 12/15/23 05/06/24 Rx (Jardiance) paroxetine HCl 40 mg tablet 40 mg PO DAILY #90 tabs 01/19/24 05/06/24 Rx linaclotide 290 mcg capsule 290 mcg PO DAILY #90 caps 02/15/24 05/06/24 Rx (Linzess) lisinopril 20 1 tablet PO DAILY #90 tabs 02/24/24 05/06/24 Rx mg-hydrochlorothiazide 12.5 mg tablet furosemide 40 mg tablet (Lasix) 40 mg PO QAM #90 tabs 03/14/24 05/06/24 Rx metformin 1,000 mg tablet 1,000 mg PO BID #180 tabs 03/14/24 05/06/24 Rx pantoprazole 40 mg tablet,delayed 40 mg PO BID 30 days #60 tabs 03/14/24 05/06/24 Rx release potassium chloride 10 mEq 10 meq PO DAILY #90 caps 03/14/24 05/06/24 Rx capsule,extended release ondansetron HCl 8 mg tablet See Rx Instructions .Route 03/23/24 04/26/24 Rx .COMPLEX #20 tabs semaglutide 2 mg/dose (8 mg/3 mL) 2 mg (0.75 mL) subcut WEEKLY #3 mL 03/23/24 04/26/24 Rx subcutaneous pen injector (Ozempic) albuterol sulfate 90 mcg/actuation 2 inh inhalation Q6H PRN shortness 04/06/24 04/26/24 Rx aerosol inhaler of breath or wheezing #18 grams atorvastatin 10 mg tablet See Rx Instructions .Route 04/11/24 05/06/24 Rx .COMPLEX #90 tabs hydrocodone 5 mg-acetaminophen 325 1 tablet PO Q8H PRN pain #90 tabs 04/22/24 04/26/24 Rx mg tablet alprazolam 1 mg tablet (Xanax) 1 mg PO TID PRN anxiety #90 tabs 04/30/24 05/06/24 Rx bupropion HCl 150 mg 24 hr tablet, 150 mg PO QAM #90 tabs 05/03/24 05/06/24 Rx extended release Patient hx anesthesia problems: none Family hx anesthesia problems: none Results Review: All pre-operative results and documents have been reviewed as part of the pre-operative evaluation. PMFSH Past Medical History Medical History Gastric varix Colon cancer screening Screening mammogram, encounter for Nausea and vomiting Panic attack Epigastric pain Cirrhosis History of rectal fissure surgery x 2 repair Vaginal itching Ataxia Adrenal adenoma Seborrheic keratoses Left knee pain Breast pain Left shoulder pain Bronchitis Anemia Nodular thyroid disease Nodular hyperplasia of liver COVID Ear pain, right Candidiasis of breast Dyspnea Tachycardia Diabetes mellitus due to underlying condition, uncontrolled, without long-term current use of insulin Nasal congestion BMI 60.0-69.9, adult BMI 50.0-59.9, adult Morbid (severe) obesity due to excess calories Chronic kidney disease, unspecified Chronic sinusitis, unspecified Depression Environmental allergies GERD (gastroesophageal reflux disease) Hyperlipidemia Hypertension Hypothyroidism, unspecified Leg weakness, bilateral Lower extremity edema Mixed hyperlipidemia ERAN on CPAP Type 2 diabetes mellitus without complications Bilateral primary osteoarthritis of knee Surgical History Surgical History History of carpal tunnel release left hand History of prior ablation treatment Hscope D&C / endometrial ablation Family History Family History Mother Family history of alcoholism Cirrhosis of liver Grandparent Family history of malignant neoplasm of breast Family history of malignant neoplasm of breast in first degree relative Father Family history of coronary artery disease Scleroderma Sibling Diabetes mellitus Hypertension Scleroderma Social History Social History Smoking packs per day: 1 Smoking cigarettes per day: 20.0 Years smoked: 5 Smoking pack-years: 5.00 Smoking status: Former smoker Tobacco type: cigarettes Second hand tobacco smoke exposure: Yes Smoking end date: 02/10/97 Alcohol intake: never Substance use: never Substance use type: does not use Do You Feel Safe in your Home?: Yes Lack of Transportation: No Lack of Food: Sometimes True Current Housing: I Have Housing Concerned About Future Housing: No Difficulty Paying Gas/Electric Bills: No Difficulty Paying for Meds: No Currently Unemployed: No Education: High School Diploma/GED Difficulty w/ Childcare or Family Care: No Living arrangements: with family Additional living arrangements comments: Occupation/Education: retired 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 Gender identity (if verbalized by the patient): Female Sexual Orientation (if Verbalized by the Patient): Straight or Heterosexual Spiritual care concerns: No Anes - Eval Final PreProcedure Day of Procedure 05/06/24 12:48 Patient weight: super morbidly obese Heart: regular rate and rhythm Lungs: clear to auscultation Airway: Mallampati scale class III Neurological: alert and oriented Last oral intake: >/= 8 hours ASA classification: IV Emergent: no Anesthetic plan: proceed Anesthesia type and monitoring: general GIVS and standard monitoring Results Review: All pre-operative results and documents have been reviewed as part of the pre-operative evaluation. Informed Consent: The patient's anesthetic plan and its attendant risks and benefits were discussed with the patient/family/POA. Questions were solicited and answers provided to the satisfaction of the patient/family/POA.
--- NOTE | 2024-05-06 12:53 | PM.HPGS ---
History of Present Illness History of Present Illness Consent: Risks, benefits, and alternatives have been discussed and questions answered. Patient agrees to proceed with procedure. Chief complaint: Neoplasm Screening Narrative: Jaida Aguilera is a 68 year old female with last colonoscopy > 5 years ago Review of Systems Review of Systems: All systems reviewed & are unremarkable except as noted in HPI and below PMFSH Past Medical History Medical History Gastric varix Colon cancer screening Screening mammogram, encounter for Nausea and vomiting Panic attack Epigastric pain Cirrhosis History of rectal fissure surgery x 2 repair Vaginal itching Ataxia Adrenal adenoma Seborrheic keratoses Left knee pain Breast pain Left shoulder pain Bronchitis Anemia Nodular thyroid disease Nodular hyperplasia of liver COVID Ear pain, right Candidiasis of breast Dyspnea Tachycardia Diabetes mellitus due to underlying condition, uncontrolled, without long-term current use of insulin Nasal congestion BMI 60.0-69.9, adult BMI 50.0-59.9, adult Morbid (severe) obesity due to excess calories Chronic kidney disease, unspecified Chronic sinusitis, unspecified Depression Environmental allergies GERD (gastroesophageal reflux disease) Hyperlipidemia Hypertension Hypothyroidism, unspecified Leg weakness, bilateral Lower extremity edema Mixed hyperlipidemia ERAN on CPAP Type 2 diabetes mellitus without complications Bilateral primary osteoarthritis of knee Surgical History Surgical History History of carpal tunnel release left hand History of prior ablation treatment Hscope D&C / endometrial ablation Family History Family History Mother Family history of alcoholism Cirrhosis of liver Grandparent Family history of malignant neoplasm of breast Family history of malignant neoplasm of breast in first degree relative Father Family history of coronary artery disease Scleroderma Sibling Diabetes mellitus Hypertension Scleroderma Social History Social History Smoking packs per day: 1 Smoking cigarettes per day: 20.0 Years smoked: 5 Smoking pack-years: 5.00 Smoking status: Former smoker Tobacco type: cigarettes Second hand tobacco smoke exposure: Yes Smoking end date: 02/10/97 Alcohol intake: never Substance use: never Substance use type: does not use Do You Feel Safe in your Home?: Yes Lack of Transportation: No Lack of Food: Sometimes True Current Housing: I Have Housing Concerned About Future Housing: No Difficulty Paying Gas/Electric Bills: No Difficulty Paying for Meds: No Currently Unemployed: No Education: High School Diploma/GED Difficulty w/ Childcare or Family Care: No Living arrangements: with family Additional living arrangements comments: Occupation/Education: 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 Gender identity (if verbalized by the patient): Female Sexual Orientation (if Verbalized by the Patient): Straight or Heterosexual Spiritual care concerns: No Meds Home Medications and Allergies Home Medications ?Medication ?Instructions ?Recorded ?Confirmed ?Type aspirin 81 mg tablet,delayed 81 mg PO DAILY 01/29/19 05/06/24 History release (Adult Low Dose Aspirin) pen needle, diabetic 32 gauge x #90 ea 03/23/19 04/06/24 Rx (ReliOn Pen [place]) levothyroxine 50 mcg tablet 50 mcg PO DAILY 09/14/20 05/06/24 History naloxone 4 mg/actuation nasal 4 mg intranasal Q2M PRN opioid 04/25/22 04/26/24 Rx spray (Narcan) overdose #2 ea diphenhydramine HCl 25 mg capsule 25 mg PO BID 11/26/22 04/26/24 History (Benadryl) ferrous sulfate 325 mg (65 mg 325 mg PO DAILY@0630 11/26/22 05/06/24 History iron) tablet propranolol 10 mg tablet 10 mg PO Q12H #60 tabs 05/09/23 05/06/24 Rx nystatin 100,000 unit/gram topical 1 applic topical BID #60 grams 06/27/23 04/26/24 Rx powder primidone 50 mg tablet See Rx Instructions .Route 10/02/23 05/06/24 Rx .COMPLEX #300 tabs hydrocortisone 1 % topical cream 1 applic topical TID PRN itching 11/25/23 04/26/24 Rx #28.35 grams empagliflozin 25 mg tablet 25 mg PO QAM #90 tabs 12/15/23 05/06/24 Rx (Jardiance) paroxetine HCl 40 mg tablet 40 mg PO DAILY #90 tabs 01/19/24 05/06/24 Rx linaclotide 290 mcg capsule 290 mcg PO DAILY #90 caps 02/15/24 05/06/24 Rx (Linzess) lisinopril 20 1 tablet PO DAILY #90 tabs 02/24/24 05/06/24 Rx mg-hydrochlorothiazide 12.5 mg tablet furosemide 40 mg tablet (Lasix) 40 mg PO QAM #90 tabs 03/14/24 05/06/24 Rx metformin 1,000 mg tablet 1,000 mg PO BID #180 tabs 03/14/24 05/06/24 Rx pantoprazole 40 mg tablet,delayed 40 mg PO BID 30 days #60 tabs 03/14/24 05/06/24 Rx release potassium chloride 10 mEq 10 meq PO DAILY #90 caps 03/14/24 05/06/24 Rx capsule,extended release ondansetron HCl 8 mg tablet See Rx Instructions .Route 03/23/24 04/26/24 Rx .COMPLEX #20 tabs semaglutide 2 mg/dose (8 mg/3 mL) 2 mg (0.75 mL) subcut WEEKLY #3 mL 03/23/24 04/26/24 Rx subcutaneous pen injector (Ozempic) albuterol sulfate 90 mcg/actuation 2 inh inhalation Q6H PRN shortness 04/06/24 04/26/24 Rx aerosol inhaler of breath or wheezing #18 grams atorvastatin 10 mg tablet See Rx Instructions .Route 04/11/24 05/06/24 Rx .COMPLEX #90 tabs hydrocodone 5 mg-acetaminophen 325 1 tablet PO Q8H PRN pain #90 tabs 04/22/24 04/26/24 Rx mg tablet alprazolam 1 mg tablet (Xanax) 1 mg PO TID PRN anxiety #90 tabs 04/30/24 05/06/24 Rx bupropion HCl 150 mg 24 hr tablet, 150 mg PO QAM #90 tabs 05/03/24 05/06/24 Rx extended release Allergies Allergy/AdvReac Type Severity Reaction Status Date / Time exenatide Allergy Intermediate Hives Verified 05/06/24 11:45 saxagliptin Allergy Intermediate Hives Verified 05/06/24 11:45 Vital Signs Vital Signs - 24 hr 05/06/24 11:47 Temperature 97 F L Pulse Rate 102 H Respiratory Rate 16 Blood Pressure 175/87 H Pulse Oximetry 97 Oxygen Delivery Room Air Exam Const: General: comfortable and no acute distress Nutritional Appearance: obese HENMT: Face/Nose/Sinus: Normal nares present Eyes: General: appearance normal, both eyes and all related structures Neck: Neck: no JVD Resp: Auscultation: clear to auscultation bilaterally Cardio: Rate: regular rate Rhythm: regular rhythm GI: Inspection: non-distended GI Palp: Yes Soft to palpation Skin: General skin exam: normal color Neuro: Speech: normal speech Extrem: General: normal to inspection Psych: Mental Status: mental status grossly normal Assessment and Plan Assessment and plan (1) Colon cancer screening: Code(s): Z12.11 - Encounter for screening for malignant neoplasm of colon Status: Acute Assessment and Plan: colonoscopy (2) Morbid obesity with BMI of 50.0-59.9, adult: Code(s): E66.01 - Morbid (severe) obesity due to excess calories; Z68.43 - Body mass index [BMI] 50.0-59.9, adult Status: Acute (3) Cirrhosis: Code(s): K74.60 - Unspecified cirrhosis of liver Status: Acute
[2024-05-06 12:58] LABS: Glucose Point of Care 193 mg/dl (65-105)
[2024-05-06 13:11] VITALS: BP 113/65; PULSE 88; RESP 20; O2SAT 94
[2024-05-06 13:21] VITALS: BP 118/74; PULSE 92; RESP 20; O2SAT 96
[2024-05-06 13:31] VITALS: BP 130/82; PULSE 86; RESP 20; O2SAT 95
== END 2024-05-06 13:44 | disposition home or self-care (01) ==
PROVIDERS: PCP Family Medicine; Visit Provider Internal Medicine Gastroenterology
PROC: 0DJD8ZZ Inspection of Lower Intestinal Tract, Via Natural or Artificial Opening Endoscopic (ICD-10-PCS; CPT 45378; principal; 2024-05-06 13:00)
DX: Z12.11 Encounter for screening for malignant neoplasm of colon (principal); K74.60 Unspecified cirrhosis of liver; D64.9 Anemia, unspecified; E11.22 Type 2 diabetes mellitus with diabetic chronic kidney disease; I12.9 Hypertensive chronic kidney disease with stage 1 through stage 4 chronic kidney disease, or unspecified chronic kidney disease; N18.9 Chronic kidney disease, unspecified; K21.9 Gastro-esophageal reflux disease without esophagitis; E03.9 Hypothyroidism, unspecified; E78.2 Mixed hyperlipidemia; M17.0 Bilateral primary osteoarthritis of knee; L82.1 Other seborrheic keratosis; R00.0 Tachycardia, unspecified; J32.9 Chronic sinusitis, unspecified; F32.A Depression, unspecified; F41.0 Panic disorder [episodic paroxysmal anxiety]; G47.33 Obstructive sleep apnea (adult) (pediatric); E66.01 Morbid (severe) obesity due to excess calories; Z68.43 Body mass index [BMI] 50.0-59.9, adult; Z79.82 Long term (current) use of aspirin; Z79.84 Long term (current) use of oral hypoglycemic drugs; Z79.85 Long-term (current) use of injectable non-insulin antidiabetic drugs; Z79.51 Long term (current) use of inhaled steroids; Z79.891 Long term (current) use of opiate analgesic; Z99.89 Dependence on other enabling machines and devices; Z98.890 Other specified postprocedural states; Z98.891 History of uterine scar from previous surgery; Z87.891 Personal history of nicotine dependence; Z86.018 Personal history of other benign neoplasm; Z87.19 Personal history of other diseases of the digestive system; Z80.3 Family history of malignant neoplasm of breast; Z82.49 Family history of ischemic heart disease and other diseases of the circulatory system
CPT/HCPCS: G0105; 82948; J2704; J7120

== ENCOUNTER 2024-09-14 12:18 | Outpatient (CLI) | payer MEDICARE, MEDICAID, SELFPAY ==
--- NOTE | ~2024-09-14 | US_ITS ---
Limited Abdominal Sonogram: Real-time sonographic imaging of the right upper quadrant was performed. Clinical History: Cirrhosis Findings: The liver appears hyperechoic, with no evidence of mass lesion or bile duct dilatation. Li ton measures 21.8 cm in length. Main portal vein demonstrates normal direction of flow. The gallbladd er is well distended, and it contains a small echogenic gallstone. The common bile duct measures 6 mm . The visualized pancreas, aorta, and IVC are unremarkable. Impression: Cholelithiasis. Diffuse fatty infiltration of liver with associated hepatomegaly. Reviewed, dictated and finalized at location . Impression: Cholelithiasis. Diffuse fatty infiltration of liver with associated hepatomegaly.
--- OUTSIDE RECORDS SUMMARY | 2024-09-14 12:21 | XMS_ITS | Encounter Summary ---
Author Organization [facility] Address [address] [place] [address] Care Team Providers Care Forestry Pilot Name Role Phone Jagjit Felton MD Primary Care Provider [phone] Encounter Details Date Type Department Care Team (Late st Contact Info) Description 02/14/[address] 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 Derm[facility] Lab Received: 02/14/2021 12:21 PM Pathologist: Enma Barnett MD Specimens: A) - Skin, right neck B) - Skin, right back 2 10:11 AM [facility] [[email or web address]] DERMATOPATHOLOGY LABORATORY Final Diagnosis Specimen A. SKIN, right neck: SEBORRHEIC KERATOSIS (L82.1) PRESENT AT MARGIN Specimen B. SKIN, right back: SEBORRHEIC KERATOSIS (L82.1) PRESENT AT MARGIN 2 10:11 AM [facility] [[email or web address]] DERMATOPATHOLOGY LABORATORY at [address] [facility] [[email or web address]] Clinical History A-B: Changing lesion. Check margins. 2 10:11 AM [facility] [[email or web address]] DERMATOPATHOLOGY LABORATORY Gross Description Specimen A: Received is one formalin filled container labeled with the patient's name and designated right neck. The specimen consists of a non-oriented ellipse of skin measuring [id number]. The epidermal surface consists of a centrally located [id number] nodule. The margin is inked green. The 12 o'clock and 6 o'clock tips are submitted in cassette 1. The remainder of the ellipse is serially sectioned and submitted in cassette 2-3. Jar 0. Specimen B: Received is one formalin filled container labeled with the patient's name and designated right back. The specimen consists of a shave biopsy measuring [id number], bisected. The margin is inked green. Jar 0. 2 10:11 AM [facility] [[email or web address]] DERMATOPATHOLOGY LABORATORY Microscopic Description Specimen A. SKIN, [...] margin of the specimen. 2 10:11 AM [facility] [[email or web address]] DERMATOPATHOLOGY LABORATORY Disclaimer An external and internal positive and negative controls are appropriate for the histochemical, immunohistochemical and immunofluorescence stain(s) in this case (if any), except where stated explicitly. The performance characteristics of the stain(s) cited in this report were developed and its performance characteristic determined by the Dermatopathology Laboratory at [facility], directed by Dr. Gab Steven. These tests need not be, and therefore are not, approved by the [place] Food and Drug Administration. The tests are used for clinical purposes. Billing Codes Specimen Charges Stain Charges 19836 33408 1 1 2 10:11 AM PLOW HOLDER DERMATOPATHOLOGY LABORATORY Embedded Images 2 10:11 AM PLOW HOLDER DERMATOPATHOLOGY LABORATORY Pathology/Cytology TISSUE SPECIMEN FROM SKIN / Unknown 02/13/2021 02/14/2021 12:21 PM PLOW HOLDER Miscellaneous samples (specimen) TISSUE SPECIMEN FROM SKIN / Unknown 02/13/2021 02/14/2021 12:21 PM PLOW HOLDER Jagjit Felton MD LAB - PATHOLOGY/CYTOLOGY ORDE [id number] Final Result DERMATOPATHOLOGY LABORATORY [facility] - Department of Dermatology [facility] Medicine [address] [place] [address], [address] [phone] documented in this encounter Visit Diagnoses Not on filedocumented in this encounter Care Teams Forestry Pilot Relationship Specialty Start Date End Date Jagjit Felton MD [address] [place] [address] PCP - General 02/08/21 documented as of this encounter
--- OUTSIDE RECORDS SUMMARY | 2024-09-14 12:21 | XMS_ITS | Clinical Summary ---
Author Organization [facility] Address [address] [place] [id number] Phone Care Team Providers Care Fighting Vehicle Infantryman Name Role Phone Jagjit Felton MD Primary Care Provider [phone] Allergies No known active allergies Medications aspirin 81 MG chewable tablet 2 Active ALPRAZolam (XANAX) 1 MG tablet 2 Active metFORMIN (GLUCOPHAGE) 1000 MG tablet 1 bid 2 Active cetirizine (ZyrTEC HIVES RELIEF) 10 MG tablet 2 Active lisinopril-hydr oCHLOROthiazide (PRINZIDE,ZESTO RETIC) 20-12.5 MG per tablet 1 daily 0 8 Active albuterol HFA (PROAIR HFA) 108 (90 Base) MCG/ACT inhaler 2 puffs as needed 0 8 Active fluticasone (FLONASE) 50 MCG/ACT nasal spray 1 puff daily 0 8 Active primidone (MYSOLINE) 50 MG tablet 1 daily 0 8 Active levothyroxine (SYNTHROID, LEVOTHROID) 50 MCG tablet 2 Active omega-3 (FISH OIL) 1000 MG capsule 2 daily 5 Active potassium chloride (MICRO-K) 10 MEQ CR capsule Take 10 mEq by mouth 1 (one) time each day 9 Active furosemide (LASIX) 40 MG tablet Take 40 mg by mouth 1 (one) time each day 9 Active ondansetron (ZOFRAN) 8 MG tablet TAKE 1 TABLET BY MOUTH TWICE DAILY NEEDED FOR NAUSEA 9 Active pantoprazole (PROTONIX) 40 MG EC tablet Take 40 mg by mouth 1 (one) time each day 9 Active NARCAN 4 MG/0.1ML liquid ADMINISTER A SINGLE SPRAY IN ONE NOSTRIL UPON SIGNS OF OPIOID OVERDOSE. CALL 911. REPEAT AFTER 3 MINUTES IF NO RESPONSE. 9 Active mupirocin (BACTROBAN) 2 % ointment APPLY A SMALL AMOUNT TOPICALLY TO AFFECTED AREA TWICE DAILY 9 Active LINZESS 72 MCG capsule Take 1 capsule by mouth 1 (one) time each day 9 Active HYDROcodone-gogo taminophen (NORCO) 5-325 MG per tablet Take 1 tablet by mouth every 8 (eight) hours if needed for pain 9 Active VICTOZA 18 MG/3ML injection 0 Active atorvastatin (LIPITOR) 10 MG tablet Take 10 mg by mouth 1 (one) time each day 0 Active Cholecalciferol (VITAMIN D3) 50 MCG (2000 UT) tablet Take by mouth Active buPROPion XL (WELLBUTRIN XL) 150 MG 24 hr tablet TAKE 1 TABLET BY MOUTH ONCE DAILY IN THE MORNING 1 Active Jardiance 10 MG tablet 1 Active nystatin (MYCOSTATIN) cream APPLY ONE APPLICATION TOPICALLY TWICE DAILY 1 Active PARoxetine (PAXIL) 40 MG tablet Take 40 mg by mouth 1 (one) time each day 1 Active Active Problems Problem Noted Date Diagnosed Date Vitamin D deficiency 10/11/2019 Gastro-esophageal reflux disease without esophag itis 04/16/2017 Obesity 04/16/2017 Hypertensive chronic kidney disease with stage 1 through stage 4 chronic kidney disease, or unspecified chronic kidney disease 09/27/2013 Type 2 diabetes mellitus wit h diabetic chronic kidney disease 08/22/2011 Stage 3a chronic kidney disease 08/22/2011 Immunizations Immunization Administration Dates Next Due Influenza TIV (IM) 05/29/2020(Deferred: Patient Refused) Family History Medical History Relation Comments Kidney disease Neg Hx Social History Tobacco Use Types Packs/Day Years Used Date Smoking Tobacco: Former Smokeless Tobacco: Never Alcohol Use Standard Drinks/Week Comments Not Currently 0 (1 standard drink = 0.6 oz pur e alcohol) Comments Unknown Sex and Gender Information Value Date Recorded Sex Assigned at Not on file Legal Sex Female 9:41 AM MST Gender Identity Not on file Sexual Orientation [...] 1:42 PM CDT Height 162.6 cm (5' 4) 05/29/2020 1:42 PM CDT Body Mass Index 57.16 05/29/2020 1:42 PM CDT Plan of Treatment Health Maintenance Due Date Last Done Comments Pneumococcal PPSV23/PCV13 65 + Years / Low and Medium Risk (1 of 2 - PCV) 2006 Influenza Vaccine (#1) 2024 [place] [address] Care Teams Fighting Vehicle Infantryman Relationship Specialty Start Date End Date Jagjit Felton MD [address] [place] [phone] PCP - General Family Medicine 12/14/18
--- OUTSIDE RECORDS SUMMARY | 2024-09-14 12:21 | XMS_ITS | Clinical Summary ---
Author Organization [facility] Address [address] [place] [address] Care Team Providers Care Applied Behavior Specialist Name Role Phone Jagjit Felton MD Primary Care Provider Source Comments [facility],non-owned Affiliates and Associated Physician Practices is amultiple site organization consisting of ambulatory clinics and hospital sitesin [place], [place], [place] and [place]. This disclosure is being madepursuant to the Care Everywhere program and may not contain all information available regarding this patient. 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
== END 2024-09-14 12:19 | disposition home or self-care (01) ==
PROVIDERS: PCP Family Medicine; Visit Provider Internal Medicine Gastroenterology
DX: K76.0 Fatty (change of) liver, not elsewhere classified (principal); N20.0 Calculus of kidney; K74.60 Unspecified cirrhosis of liver
CPT/HCPCS: 76705

== ENCOUNTER 2024-12-16 12:49 | Outpatient (CLI) | payer MEDICARE, MEDICAID, SELFPAY ==
--- NOTE | ~2024-12-16 | MM_ITS ---
EXAMINATION: MM screening becky BI w airam HISTORY: Screening TECHNIQUE: Craniocaudal and mediolateral oblique 3-D tomosynthesis images were obtained and synthetic 2-D images were generated. CAD analysis was submitted and interpreted. COMPARISON: No prior mammogram is available for comparison at this institution. BREAST PARENCHYMAL COMPOSITION: Not Dense: The breasts are almost entirely fatty. FINDINGS: There are benign-appearing bilateral breast calcifications which are symmetric. There is no evidence of suspicious mass, calcification, or architectural distortion to suggest malignancy in either breast. There has been no suspicious interval change. IMPRESSION: 1. No mammographic evidence of malignancy. 2. Recommend routine screening mammography in one year. BI-RADS Category 2: Benign finding(s). Reviewed, dictated and finalized at location [facility]
== END 2024-12-16 12:50 | disposition home or self-care (01) ==
LOC: MICIMG 12:52
PROVIDERS: PCP Family Medicine; Visit Provider Family Medicine
DX: Z12.31 Encounter for screening mammogram for malignant neoplasm of breast (principal)
CPT/HCPCS: 77063; 77067